=== PATIENT | male | born 1960 | race Caucasian/White ===

== ENCOUNTER 2019-04-15 19:22 | Inpatient (IN) | payer BC ==
[2019-04-15] MEDS ORDERED: ONDANSETRON 4 MG/2 ML VIAL ONE (21:07)
[2019-04-15] MEDS ORDERED: MORPHINE 4 MG/ML SYR ONE (21:07)
[2019-04-15] MEDS ORDERED: NA CHLORIDE 0.9% 1,000 ML ONE (21:07)
[2019-04-15 21:13] LABS: Absolute Lymphocytes (CBC) 2.6 K/uL (0.7-4.9); Basophils % 0.9 % (0-1.3); Lymphocytes % 26.1 % (15.3-44.8); MPV 8.7 fL (7.6-11.3); RBC Red Blood Cell Count 5.09 M/uL (4.33-5.43)
[2019-04-15 21:35] LABS: ALT/SGPT 34 U/L (12-78); AST/SGOT 15 U/L (15-37); Albumin 3.7 g/dL (3.4-5.0); Alkaline Phosphatase 134 U/L (45-117); BUN Blood Urea Nitrogen 18 mg/dL (7-18); Bicarbonate 27 mmol/L (21-32); Bilirubin Direct < 0.1 mg/dL (0-0.2); Bilirubin Total 0.3 mg/dL (0.2-1.0); Glucose Level 261 mg/dL (74-106); Lipase 3496 U/L (73-393); Potassium 3.9 mmol/L (3.5-5.1); Protein, Total 7.8 g/dL (6.4-8.2); Sodium Level 139 mmol/L (136-145)
--- NOTE | 2019-04-15 21:46 | RAD REPORT ---
EXAM DESCRIPTION: US - Abdomen Exam Limited - 04/15/2019 9:22 pm CLINICAL HISTORY: ABD PAIN COMPARISON: <Comparisons> FINDINGS: The gallbladder demonstrates no gallstones. Small amount of gallbladder sludge suspected. No pericholecystic fluid or gallbladder wall thickening. The common bile duct is normal measuring 3 m m. The liver demonstrates no findings of intrahepatic biliary dilatation. IMPRESSION: Minimal gallbladder sludge.
--- NOTE | 2019-04-16 00:02 | ER ---
Nurse's Notes [facility] Name: Corey Govea Age: 58 yrs Sex: Male : 1960 Arrival Date: 04/15/2019 Time: 19:26 Bed 20 Private MD: Norman Renae Diagnosis: Acute pancreatitis Presentation: 04/15 19:36 Presenting complaint: Patient states: right upper quad pain and epigastric pain ak1 intermittent since last week. pt denies vomiting. pt c/o intermittent nausea. Transition of care: patient was not received from another setting of care. Onset of symptoms is unknown. Risk Assessment: Do you want to hurt yourself or someone else? Patient reports no desire to harm self or others. Initial Sepsis Screen: Does the patient meet any 2 criteria? No. Patient's initial sepsis screen is negative. Does the patient have a suspected source of infection? No. Patient's initial sepsis screen is negative. Care prior to arrival: None. 19:36 Method Of Arrival: Ambulatory ak1 19:36 Acuity: NIKOLAI 3 ak1 Triage Assessment: 19:39 General: Appears in no apparent distress. Behavior is calm, cooperative. GI: Abdomen is ak1 round Reports upper abdominal pain, epigastric pain, nausea. Historical: - Allergies: 19:38 Codeine; ak1 - Home Meds: 19:39 atorvastatin oral oral [Active]; ak1 - PMHx: 19:38 High Cholesterol; ak1 - PSHx: 19:38 Appendectomy; ak1 - Immunization history:: Adult Immunizations unknown. - Social history:: Smoking status: Patient/guardian denies using tobacco, the patient reports quitting approximately 8 years ago. - Ebola Screening: : No symptoms or risks identified at this time. Screenin:40 Abuse screen: Denies threats or abuse. Denies injuries from another. Nutritional ak1 screening: No deficits noted. Tuberculosis screening: No symptoms or risk factors identified. Fall Risk None identified. Assessment: 21:00 General: Appears in no apparent distress. uncomfortable, Behavior is calm, cooperative, cc3 appropriate for age. Pain: Complains of pain in right upper quadrant Quality of pain is described as aching, Pain began since a week ago. Neuro: Level of Consciousness is awake, alert, obeys commands, Oriented to person, place, time, situation, Appropriate for age. Cardiovascular: Denies chest pain, Capillary refill < 3 seconds Patient's skin is warm and dry. Respiratory: Airway is patent Respiratory effort is even, unlabored, Respiratory pattern is regular, symmetrical. GI: Bowel sounds present X 4 quads. Abd is soft X 4 quads Abdomen is tender to palpation in right upper quadrant. : No signs and/or symptoms were reported regarding the genitourinary system. EENT: No signs and/or symptoms were reported regarding the EENT system. Derm: Skin is intact, is healthy with good turgor, Skin is pink, warm \T\ dry. normal. Musculoskeletal: Circulation, motion, and sensation intact. Range of motion: intact in all extremities. 22:25 Reassessment: Patient appears in no apparent distress at this time. Patient and/or cc3 family updated on plan of care and expected duration. Pain level reassessed. Patient is alert, oriented x 3, equal unlabored respirations, skin warm/dry/pink. Patient states feeling better. Patient states symptoms have improved. 23:45 Reassessment: Patient appears in no apparent distress at this time. Patient and/or cc3 family updated on plan of care and expected duration. Pain level reassessed. Patient is alert, oriented x 3, equal unlabored respirations, skin warm/dry/pink. Patient for admission, Dr. Slater at bedside. 04/16 00:10 Reassessment: Patient appears in no apparent distress at this time. Patient and/or cc3 family updated on plan of care and expected duration. Pain level reassessed. Patient is alert, oriented x 3, equal unlabored respirations, skin warm/dry/pink. Patient was ordered for Lipid, called lab at 1108 to ask if they still need a new sample and as per staff named Tawnya no need for new sample she will just add it on from the previously taken blood. 00:21 Reassessment: Patient taken by solar fabrication technician to their department by wheelchair. cc3 00:42 Reassessment: Patient came back from CT scan department, awaiting result. cc3 01:30 Reassessment: Patient appears in no apparent distress at this time. Patient and/or cc3 family updated on plan of care and expected duration. Pain level reassessed. Patient is alert, oriented x 3, equal unlabored respirations, skin warm/dry/pink. Room available in 220, Dr. Todd said Dr. Slater wants CT scan result first before sending the patient for admission. 02:00 Reassessment: Patient appears in no apparent distress at this time. Patient and/or cc3 family updated on plan of care and expected duration. Pain level reassessed. Patient is alert, oriented x 3, equal unlabored respirations, skin warm/dry/pink. CT scan result came, Dr. Todd informed Dr. Slater and said patient can be shifted upstairs for admission. Report called and handed over to REBEKAH Pope for continuity of care and management. Patient states feeling better. Patient states symptoms have improved. 02:20 Reassessment: Patient appears in no apparent distress at this time. Patient and/or cc3 family updated on plan of care and expected duration. Pain level reassessed. Patient is alert, oriented x 3, equal unlabored respirations, skin warm/dry/pink. Patient left ER for admission vitally stable by wheelchair escorted by technical supervisoreverette Patrick. No valuables left in the patient's room. Patient states feeling better. Patient states symptoms have improved. Vital Signs: 04/15 19:39 BP 137 / 89; Pulse 77; Resp 16; Temp 98.0; Pulse Ox 98% on R/A; Weight 78.02 kg (R); ak1 Height 5 ft. 7 in. (170.18 cm) (R); Pain 9/10; 21:05 BP 126 / 90; Pulse 69; Resp 16 S; Pulse Ox 96% on R/A; cc3 22:15 BP 143 / 88; Pulse 71; Resp 15 S; Pulse Ox 96% on R/A; Pain 4/10; cc3 23:00 BP 135 / 90; Pulse 71; Resp 16 S; Pulse Ox 97% on R/A; Pain 4/10; cc3 23:45 BP 145 / 88; Pulse 72; Resp 17 S; Pulse Ox 98% on R/A; Pain 3/10; cc3 04/16 00:46 BP 151 / 89; Pulse 72; Resp 17 S; Pulse Ox 95% on R/A; Pain 3/10; cc3 01:45 BP 151 / 84; Pulse 74; Resp 18 S; Pulse Ox 96% on R/A; Pain 2/10; cc3 02:12 BP 149 / 87; Pulse 75; Resp 17 S; Pulse Ox 96% on R/A; Pain 2/10; cc3 04/15 19:39 Body Mass Index 26.94 (78.02 kg, 170.18 cm) ak1 ED Course: 04/15 19:26 Patient arrived in ED. cl3 19:26 Norman Renae MD is Private Physician. cl3 19:37 Triage completed. ak1 19:39 Arm band placed on Patient placed in waiting room, Patient notified of wait time. ak1 19:40 Patient has correct armband on for positive identification. ak1 20:44 Mukesh Todd MD is Attending Physician. tw4 20:51 Mary Jane Gray is Primary Nurse. cc3 21:00 Inserted saline lock: 20 gauge in right antecubital area, using aseptic technique. cc3 Blood collected. 21:23 US Abdomen Limited In Process Unspecified. EDMS 23:59 Leif Slater DO is Hospitalizing Provider. tw4 04/16 00:54 CT Abd/Pelvis - IV Contrast Only In Process Unspecified. EDMS 02:00 No provider procedures requiring assistance completed. Patient admitted, IV remains in cc3 place. Administered Medications: 04/15 21:10 Drug: NS 0.9% 1000 ml Route: IV; Rate: 125 ml/hr; Site: right antecubital; cc3 04/16 02:00 Follow up: Response: No adverse reaction; IV Status: Infusion continued upon admission cc3 04/15 21:10 Drug: morphine 4 mg {Note: RASS 0.} Route: IVP; Site: right antecubital; cc3 22:00 Follow up: Response: No adverse reaction; Pain is decreased; RASS: Alert and Calm (0) cc3 21:15 Drug: Zofran 4 mg Route: IVP; Site: right antecubital; cc3 22:00 Follow up: Response: No adverse reaction; Nausea is decreased cc3 Outcome: 23:59 Decision to Hospitalize by Provider. tw4 04/16 02:00 Admitted to Med/surg accompanied by tech, family with patient, via wheelchair, room cc3 220, with chart, Report called to REBEKAH Pope Condition: stable Instructed on the need for admit, Demonstrated understanding of instructions. 02:22 Patient left the ED. cc3 Signatures: Dispatcher [employer] EDCristy Eaton, RN RN ak1 Mukesh Todd MD MD tw4 Mary Jane Gray cc3 Amelia Pineda cl3 Corrections: (The following items were deleted from the chart) 00:18 04/15 23:45 Reassessment: Patient appears in no apparent distress at this time. Patient cc3 and/or family updated on plan of care and expected duration. Pain level reassessed. Patient is alert, oriented x 3, equal unlabored respirations, skin warm/dry/pink. 3 04/16 02:04/15 22:15 BP 143 / 88; Pulse 71bpm; Resp 15bpm; Spontaneous; Pulse Ox 96% RA; [place] [id number] 04/16 02:04/15 23:00 BP 135 / 90; Pulse 71bpm; Resp 16bpm; Spontaneous; Pulse Ox 97% RA; [place] [id number] 04/16 02:08 04/15 23:45 BP 145 / 88; Pulse 72bpm; Resp 17bpm; Spontaneous; Pulse Ox 98% [facility]; [facility]
--- NOTE | 2019-04-16 00:03 | EDPHYS ---
Physician Documentation [facility] Name: Corey Govea Age: 58 yrs Sex: Male : 1960 Arrival Date: 04/15/2019 Time: 19:26 Bed 20 Private MD: Norman Renae ED Physician Mukesh Todd HPI: 04/15 21:32 This 58 yrs old Male presents to ER via Ambulatory with complaints of tw4 Abdominal Pain. 21:32 The patient presents with abdominal pain. Onset: The symptoms/episode began/occurred 1 tw4 week(s) ago, and became persistent today. Associated signs and symptoms: none. The symptoms are described as sharp. Severity of pain: At its worst the pain was moderate in the emergency department the pain is unchanged. The patient has not experienced similar symptoms in the past. 21:37 The symptoms radiate to right back. Modifying factors: The symptoms are alleviated by tw4 nothing, the symptoms are aggravated by food. Historical: - Allergies: 19:38 Codeine; ak1 - Home Meds: 19:39 atorvastatin oral oral [Active]; ak1 - PMHx: 19:38 High Cholesterol; ak1 - PSHx: 19:38 Appendectomy; ak1 - Immunization history:: Adult Immunizations unknown. - Social history:: Smoking status: Patient/guardian denies using tobacco, the patient reports quitting approximately 8 years ago. - Ebola Screening: : No symptoms or risks identified at this time. ROS: 21:37 Constitutional: Negative for fever, chills, and weight loss, Eyes: Negative for injury, tw4 pain, redness, and discharge, Cardiovascular: Negative for chest pain, palpitations, and edema, Respiratory: Negative for shortness of breath, cough, wheezing, and pleuritic chest pain. 21:37 Back: Negative for injury and pain, MS/Extremity: Negative for injury and deformity, Skin: Negative for injury, rash, and discoloration. 21:37 Abdomen/GI: Positive for abdominal pain, nausea, Negative for nausea and vomiting, nausea, vomiting, and diarrhea, vomiting, diarrhea, constipation, abdominal cramps, abdominal distension, anorexia, dysphagia, hematemesis, black/tarry stool, rectal pain, rectal bleeding, bowel incontinence. Exam: 21:37 Constitutional: This is a well developed, well nourished patient who is awake, alert, tw4 and in no acute distress. Head/Face: Normocephalic, atraumatic. Chest/axilla: Normal chest wall appearance and motion. Nontender with no deformity. No lesions are appreciated. Cardiovascular: Regular rate and rhythm with a normal S1 and S2. No gallops, murmurs, or rubs. Normal PMI, no JVD. No pulse deficits. Respiratory: Lungs have equal breath sounds bilaterally, clear to auscultation and percussion. No rales, rhonchi or wheezes noted. No increased work of breathing, no retractions or nasal flaring. Back: No spinal tenderness. No costovertebral tenderness. Full range of motion. Skin: Warm, dry with normal turgor. Normal color with no rashes, no lesions, and no evidence of cellulitis. MS/ Extremity: Pulses equal, no cyanosis. Neurovascular intact. Full, normal range of motion. Neuro: Awake and alert, GCS 15, oriented to person, place, time, and situation. Cranial nerves II-XII grossly intact. Motor strength 5/5 in all extremities. Sensory grossly intact. Cerebellar exam normal. Normal gait. 21:37 Abdomen/GI: Inspection: abdomen appears normal, Bowel sounds: diminished, Palpation: moderate abdominal tenderness, in the right upper quadrant. Vital Signs: 19:39 BP 137 / 89; Pulse 77; Resp 16; Temp 98.0; Pulse Ox 98% on R/A; Weight 78.02 kg (R); ak1 Height 5 ft. 7 in. (170.18 cm) (R); Pain 9/10; 21:05 BP 126 / 90; Pulse 69; Resp 16 S; Pulse Ox 96% on R/A; cc3 22:15 BP 143 / 88; Pulse 71; Resp 15 S; Pulse Ox 96% on R/A; Pain 4/10; cc3 23:00 BP 135 / 90; Pulse 71; Resp 16 S; Pulse Ox 97% on R/A; Pain 4/10; cc3 23:45 BP 145 / 88; Pulse 72; Resp 17 S; Pulse Ox 98% on R/A; Pain 3/10; cc3 04/16 00:46 BP 151 / 89; Pulse 72; Resp 17 S; Pulse Ox 95% on R/A; Pain 3/10; cc3 01:45 BP 151 / 84; Pulse 74; Resp 18 S; Pulse Ox 96% on R/A; Pain 2/10; cc3 02:12 BP 149 / 87; Pulse 75; Resp 17 S; Pulse Ox 96% on R/A; Pain 2/10; cc3 04/15 19:39 Body Mass Index 26.94 (78.02 kg, 170.18 cm) ak1 MDM: 04/15 20:44 Patient medically screened. tw4 23:59 Differential diagnosis: gastritis, gastroesophageal reflux disease, Hepatitis, Peptic tw4 Ulcer Disease, Perf. Duodenal Ulcer, Perf. Gastric Ulcer. Data reviewed: vital signs, nurses notes, lab test result(s), amylase and lipase, CBC, white blood cell count, hemoglobin, hematocrit, platelets, electrolytes, sodium, potassium, chloride, serum bicarbonate, BUN, creatinine, serum glucose, hepatic panel. Data interpreted: Pulse oximetry: Interpretation: normal. Counseling: I had a detailed discussion with the patient and/or guardian regarding: the historical points, exam findings, and any diagnostic results supporting the discharge/admit diagnosis, lab results, radiology results. Medication response: morphine relieved the patient's pain. Symptoms have resolved. Response to treatment: the patient's symptoms have markedly improved after treatment, and as a result, I will admit patient. Physician consultation: Leif Slater DO regarding admission, to the telemetry unit. and will see patient in ED. Special discussion:. 04/15 20:45 Order name: Basic Metabolic Panel; Complete Time: 22:00 04/15 22:00 Interpretation: Normal except: GLUC 261; GFR 86. 04/15 20:45 Order name: CBC with Diff; Complete Time: 22:00 04/15 22:00 Interpretation: Normal except. 04/15 20:45 Order name: Creatinine for Radiology; Complete Time: 22:00 04/15 22:00 Interpretation: Within normal limits: CRE 0.84; GFR > 90. 04/15 20:45 Order name: Hepatic Function; Complete Time: 22:00 04/15 22:00 Interpretation: Normal except: ALK 134; GLOB 4.1; A/G 0.9. 04/15 20:45 Order name: Lipase; Complete Time: 22:00 04/15 22:00 Interpretation: Normal except: LIP 3496. [facility] 04/15 23:57 Order name: Urine Dipstick--Ancillary (enter results); Complete Time: 01:54 az 04/16 01:54 Interpretation: Abnormal: USPGR >1.030. [facility] 04/15 20:45 Order name: IV Saline Lock; Complete Time: 21:04 [facility] 04/15 20:45 Order name: Labs collected and sent; Complete Time: 21:04 [facility] 04/15 20:53 Order name: US Abdomen Limited; Complete Time: 22:00 [facility] 04/15 23:58 Order name: CT Abd/Pelvis - IV Contrast Only [facility] 04/16 00:08 Order name: Lipid Profile [facility] 04/15 20:45 Order name: Urine Dipstick-Ancillary (obtain specimen); Complete Time: 00:01 4 Administered Medications: 21:10 Drug: NS 0.9% 1000 ml Route: IV; Rate: 125 ml/hr; Site: right antecubital; 3 04/16 02:00 Follow up: Response: No adverse reaction; IV Status: Infusion continued upon admission 3 04/15 21:10 Drug: morphine 4 mg {Note: RASS 0.} Route: IVP; Site: right antecubital; cc3 22:00 Follow up: Response: No adverse reaction; Pain is decreased; RASS: Alert and Calm (0) 3 21:15 Drug: Zofran 4 mg Route: IVP; Site: right antecubital; cc3 22:00 Follow up: Response: No adverse reaction; Nausea is decreased cc3 Disposition: 04/15/19 23:59 Hospitalization ordered by Leif Slater for Inpatient Admission. Preliminary diagnosis is Acute pancreatitis. - Bed requested for Telemetry/MedSurg (Inpatient). - Status is Inpatient Admission. cc3 - Condition is Fair. - Problem is new. - Symptoms are unchanged. UTI on Admission? No Signatures: Dispatcher [employer] EDVT Tawnya Morrell RN RN mw Krenek, Amber RN RN ak1 Mukesh Todd MD MD tw4 Mary Jane Gray cc3 Corrections: (The following items were deleted from the chart) 21:37 21:32 Constitutional: Negative for fever, chills, and weight loss, Cardiovascular: tw4 Negative for chest pain, palpitations, and edema, Respiratory: Negative for shortness of breath, cough, wheezing, and pleuritic chest pain, Back: Negative for injury and pain, MS/Extremity: Negative for injury and deformity, Skin: Negative for injury, rash, and discoloration, Neuro: Negative for headache, weakness, numbness, tingling, and seizure, tw4 21:37 21:32 Abdomen/GI: Positive for abdominal pain, nausea, Negative for nausea and tw4 vomiting, nausea, vomiting, and diarrhea, vomiting, diarrhea, constipation, abdominal cramps, abdominal distension, anorexia, dysphagia, hematemesis, black/tarry stool, rectal pain, rectal bleeding, bowel incontinence, flatulence, tw4 21:37 21:32 Constitutional: Positive for body aches, fatigue, malaise, poor PO intake, tw4 Negative for chills, fever, weight loss, tw4 21:38 21:32 The symptoms do not radiate. tw4 tw4 21:39 21:32 Constitutional: This is a well developed, well nourished patient who is awake, tw4 alert, and in no acute distress. Head/Face: Normocephalic, atraumatic. Chest/axilla: Normal chest wall appearance and motion. Nontender with no deformity. No lesions are appreciated. Cardiovascular: Regular rate and rhythm with a normal S1 and S2. No gallops, murmurs, or rubs. Normal PMI, no JVD. No pulse deficits. Respiratory: Lungs have equal breath sounds bilaterally, clear to auscultation and percussion. No rales, rhonchi or wheezes noted. No increased work of breathing, no retractions or nasal flaring. Abdomen/GI: Soft, non-tender, with normal bowel sounds. No distension or tympany. No guarding or rebound. No evidence of tenderness throughout. Back: No spinal tenderness. No costovertebral tenderness. Full range of motion. MS/ Extremity: Pulses equal, no cyanosis. Neurovascular intact. Full, normal range of motion. Neuro: Awake and alert, GCS 15, oriented to person, place, time, and situation. Cranial nerves II-XII grossly intact. Motor strength 5/5 in all extremities. Sensory grossly intact. Cerebellar exam normal. Normal gait. tw4 04/16 01:07 04/15 23:59 Hospitalization Ordered by Leif Slater DO for Inpatient Admission. mw Preliminary diagnosis is Acute pancreatitis. Bed requested for Telemetry/MedSurg (Inpatient). Status is Inpatient Admission. Condition is Fair. Problem is new. Symptoms are unchanged. UTI on Admission? No. tw4 04/16 02:22 01:07 04/15/2019 23:59 Hospitalization Ordered by Leif Slater DO for Inpatient cc3 Admission. Preliminary diagnosis is Acute pancreatitis. Bed requested for Telemetry/MedSurg (Inpatient). Status is Inpatient Admission. Condition is Fair. Problem is new. Symptoms are unchanged. UTI on Admission? No. mw
[2019-04-16 00:11] LABS: Urine Blood NEGATIVE (NEG); Urine Glucose 2+ (NEG); Urine Protein NEGATIVE (NEG); Urine Specific Gravity >1.030 (1.005-1.030); Urine pH 5.5 (5.0-7.0)
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
[2019-04-16] MEDS ORDERED: KETOROLAC 30 MG/ML INJ IV PRN (02:32)
[2019-04-16] MEDS ORDERED: ONDANSETRON 4 MG/2 ML VIAL IV PRN (02:32)
[2019-04-16] MEDS ORDERED: SODIUM CHLORIDE 0.9% 10ML INJ IV PRN (02:32)
[2019-04-16] MEDS ORDERED: ACETAMINOPHEN 650MG/RECT SUPP RECT PRN (02:32)
[2019-04-16] MEDS ORDERED: NA CHLORIDE 0.9% 1,000 ML IV SCH (02:32)
[2019-04-16] MEDS ORDERED: ACETAMINOPHEN 500 MG TAB PO PRN (02:32)
[2019-04-16 02:38] VITALS: BMI 25.9
[2019-04-16] MEDS: INSULIN -REGULAR HUMAN 50 UNIT/0.5 ML ML SQ SCH ×2 (06:26→12:00)
[2019-04-16] MEDS ORDERED: INSULIN -REGULAR HUMAN 50 UNIT/0.5 ML ML SQ SCH (07:30)
[2019-04-16 07:54] VITALS: O2SAT 93
[2019-04-16 07:57] LABS: Urine Appearance CLEAR; Urine Bilirubin NEGATIVE (NEG); Urine Blood NEGATIVE (NEG); Urine Color YELLOW; Urine Glucose 3+ (NEG); Urine Protein NEGATIVE (NEG); Urine Specific Gravity >=1.030 (1.005-1.030); Urine Urobilinogen 0.2 mg/dL (0.2-1.0)
[2019-04-16 08:08] LABS: Urine Microscopic Reflex NO UMIC
[2019-04-16] MEDS ORDERED: ENOXAPARIN 40 MG/0.4 ML SQ SCH (09:00)
[2019-04-16] MEDS ORDERED: PANTOPRAZOLE 40 MG INJ IVP SCH (09:00)
--- NOTE | 2019-04-16 10:14 | RAD REPORT ---
EXAM DESCRIPTION: Abdomen Pelvis W Contrast CLINICAL HISTORY: 58 years Male RUQ ABDOMINAL PAIN TECHNIQUE: Contiguous axial images obtained through the abdomen and pelvis following intravenous con trast administration. Coronal and sagittal reformatted images provided. This CT exam was performed according to our departmental dose-optimization program, which includes on e or more of the following dose reduction techniques: automated exposure control, adjustment of the m A and/or kV according to patient size, and/or use of iterative reconstruction technique. COMPARISON: No prior exams provided for comparison. FINDINGS: Minimal bibasilar atelectasis. Fatty infiltration of the liver, which is enlarged without focal lesion. Normal biliary tree and gall bladder. There is mild inflammation of the proximal third portion of the duodenum and adjacent uncinate proces s of the pancreas. The remainder of the pancreas is normal. No ductal dilatation or peripancreatic fl uid collection. No other bowel inflammation. No bowel obstruction, pneumatosis, free intraperitoneal air, abscess, or ascites. Colonic diverticulosis without diverticulitis. The spleen, adrenal glands, urinary bladder, and osseous structures are normal. Simple right and slig htly complex left renal cysts. No hydronephrosis or pyelonephritis on either side. Atherosclerosis without abdominal aortic aneurysm, dissection, or retroperitoneal hemorrhage. IMPRESSION: Mild acute pancreatitis and/or duodenitis, correlate with serum amylase and lipase. No other acute findings in the abdomen or pelvis. Fatty infiltration of the liver, which is enlarged. Colonic diverticulosis without diverticulitis. Electronically signed by: Evangelina Jean MD 04/16/2019 1:05 AM CDT Due to temporary technical issues with the PACS/Fluency reporting system, reports are being signed by the in house radiologist as a courtesy to ensure prompt reporting. The interpreting radiologist is f ully responsible for the content of the report.
[2019-04-16 12:27] VITALS: BP 115/74; TEMP 97.1
== END 2019-04-16 14:27 | disposition home or self-care (01) | DRG 440 ==
LOC: ER 19:22 → ERHOLD 04-16 01:38 → 2ND 04-16 02:14
PROVIDERS: ADMIT Family Medicine; ATTEND Family Medicine
DX: K85.90 Acute pancreatitis without necrosis or infection, unspecified (principal); E11.65 Type 2 diabetes mellitus with hyperglycemia; E78.5 Hyperlipidemia, unspecified
CPT/HCPCS: 36415; 74177; 76705; 80048; 80061; 80076; 81003; 82962; 83036; 83690; 85025; 87040; 96361; 96374; 96375; 99285; C9113; J2405; J7030; Q9967

== ENCOUNTER 2021-10-07 11:54 | Observation (INO) | payer BC ==
[2021-10-06 11:58] LABS: Absolute Lymphocytes (CBC) 2.2 K/uL (0.7-4.9); Hematocrit 43.4 % (39.6-49.0); Lymphocytes % 26.1 % (15.3-44.8); MPV 8.3 fL (7.6-11.3); RBC Red Blood Cell Count 4.95 M/uL (4.33-5.43)
[2021-10-06 12:00] LABS: Protime INR 0.97
[2021-10-06 12:06] LABS: Potassium 3.8 mmol/L (3.5-5.1)
--- NOTE | 2021-10-06 12:21 | RAD REPORT ---
EXAM DESCRIPTION: Antony Darling And Lat (2 Views)10/06/2021 12:11 pm CLINICAL HISTORY: Preop for cardiac catheterization COMPARISON: 2016 FINDINGS: Lungs appear clear of acute infiltrate. Heart is normal size. Mild prominence of the right paratracheal region is unchanged.
[2021-10-07] MEDS ORDERED: NA CHLORIDE 0.9% 500 ML ONE ×2 (11:58→15:39)
[2021-10-07] MEDS ORDERED: HEPA 1000U/500MLS 2,000 UNIT/1,000 ML BAG IV ONE (12:47)
[2021-10-07] MEDS ORDERED: FENTANYL CITR 100 MCG/2 ML ONE (14:22)
[2021-10-07] MEDS ORDERED: CLOPIDOGREL 75 MG TABLET ONE (14:23)
[2021-10-07] MEDS ORDERED: HEPARIN 5000 UNIT/ML 1 ML VIAL ONE (14:23)
[2021-10-07] MEDS ORDERED: MIDAZOLAM HCL 2 MG/2 ML INJ ONE (14:23)
[2021-10-07] MEDS ORDERED: VERAPAMIL HCL 10 MG/4 ML VIAL IV ONE (14:23)
[2021-10-07] MEDS ORDERED: ATROPINE SULF 1 MG/10 ML SYR IV ONE (14:24)
[2021-10-07] MEDS ORDERED: ASPIRIN 325 MG TAB ONE (14:24)
[2021-10-07] MEDS ORDERED: TICAGRELOR 90 MG TABLET PO ONE (14:24)
[2021-10-07] MEDS ORDERED: HEPARIN 10,000 UNIT/10 ML VIAL IV ONE (14:24)
[2021-10-07] MEDS ORDERED: REGADENOSON 0.4 MG/5 ML SYR IV ONE (15:12)
[2021-10-07] MEDS ORDERED: METOPROLOL TAR 25 MG TAB PO SCH (18:00)
--- OUTSIDE RECORDS SUMMARY | 2021-10-07 18:16 | XMS REPORT | Continuity of Care Document ---
:1960 Author Organization [facility] t Address 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 Allergies, Adverse Reactions, Alerts Allergy Allergy Status Severity Reaction(s) Onset Inactive Treating Comm ents Source Name Type Date Date Clinician Codeine Propensi Active Nausea Univers ty to and/or 1-20 ity of adverse Vomiting 00:00: [place] reaction 00 [facility] s [place] CODEINE DRUG Active N/V Univers INGREDI 1-20 ity of 00:00: [place] 00 [facility] NO KNOWN Drug Active Univers ALLERGIE Class ity of [facility] Social History Social Habit Start Date Stop Date Quantity Comments Source Exposure to Not sure [facility] SARS-CoV-2 (event) Medica l Branch Sex Assigned At [birth year] [facility] 00:00:00 00:00:00 [facility] Smoking Status Start Date Stop Date Source Unknown if ever smoked [facility] Medications Ordered Filled Start Stop Current Ordering Indication Dosage Frequency Signature Comments Components Source Medication Medication Date Date Medication? Clinician (SIG) Name Name No known No Univers medications 1-20 ity of 19:43: [place] 14 [facility] methocarbam 2021-0 Yes 500mg 500 mg, Un rupert oL 1-20 Oral, QID, ity of (ROBAXIN) 18:00[place] tablet 500 00 on Mon Medical mg 08/19/20 at Branch 1200, Until Discontinu ed, Routine methocarbam No [id number] 500mg Take 1 Univers oL 500 mg -08-25 tablet by ity of tablet 00:00: 05:59 mouth 3 [place] 00 :00 (three) Medical times [place] daily for 5 days. Vital Signs Vital Name Observation Time Observation Value Comments Source Systolic blood 2020-08-19 18:00:00 160 mm[Hg] [facility] Diastolic blood 2020-08-19 18:00:00 99 [facility]Hg[facility] [place] Heart rate 2020-08-19 18:00:00 75 /min [facility] Respiratory rate 2020-08-19 18:00:00 18 /min [facility] Oxygen saturation in 2020-08-19 18:00:00 99 /min [facility] Arterial blood by [facility] Pulse oximetry [place] Body temperature 2020-08-19 15:30:00 36.28 Soila [facility] Body weight 2020-08-19 15:30:00 86.183 kg [facility] Procedures Procedure Date / Time Performing Clinician Source Performed TROPONIN I 2020-08-19 18:03:00 Singer Ananth [facility] XR CHEST 1 VW 2020-08-19 15:54:35 Singer [facility] LIPASE 2020-08-19 15:36:00 Singer [facility] TROPONIN I 2020-08-19 15:36:00 Singer [facility] COMP. METABOLIC PANEL 2020-08-19 15:36:[address] [facility] ([id number]) [facility] CBC WITH DIFF 2020-08-19 15:36:00 Singer [facility] PROTHROMBIN TIME / INR 2020-08-19 15:36:00 Ananth Kumar [facility] ACTIVATED PARTIAL 2020-08-19 15:36:00 Ananth Kumar [facility] N-TERMINAL PRO-BNP 2020-08-19 15:36:00 Ananth Kumar [facility] NOTICE OF PRIVACY 2020-08-19 15:32:34 Doctor Unassigned, No Univ [facility] PRACTICES Name [facility] Branch CONSENT/REFUSAL FOR 2020-08-19 15:26:12 Doctor Unassigned, [facility] Medical [place] Encounters Start End Encounter Admission Attending Care Care Encounter Source Date/Time Date/Time Type Type Clinicians Facility Department ID 2021-08-19 2021-08-19 Laboratory Only, Ang Db Test [place] 1.2.8 [id number] [id number] Univers 19:45:00 19:45:00 Only [facility] [id number] ity [facility] [id number] Jalil as KIM?BLEA [id number] [address] MEDICAL OFFICE BUILDING 2020-08-19 2020-08-19 Emergency Singer [facility] [id number] Univers 09:26:00 13:31:00 Ananth [place] [id number] i ty [facility] [id number] [place] [facility] [id number] [facility] 084 Branch 2020-08-19 2020-08-19 Emergency X [place] ERT [id number] Univers 09:26:00 09:26:00 [facility] Results Test Description Test Time Test Comments Results Result Comments Source TROPONIN I 2020-08-19 18:43:00 Test Item Value Reference Range Interpretation Comme nts TROPONIN I (test code = <0.012 See_Comment [Au tomated message] The [id number]) system which ge nerated this result tra nsmitted reference range : <=0.034 ng/mL. The refe rence range was not u sed to interpret this result as normal/abnormal . CANDIDO (test code = CANDIDO) Equal or Less than 0.034 ng/ml---Normal ?Note: Cardiac troponin begins to rise 3-4 hours after the onset of ischemia. Repeat in 4-6 hours if the sample was drawn within 3-4 hours of the onset of the symptom and found normal. Between 0.035 and 0.120 ng/mL--- Borderline. Questionable myocardial injury or necrosis ? ?Note: Serial measurement may be necessary to confirm or exclude the diagnosis of myocardial injury or necrosis; Clinical correlation (symptoms, EKGs, imaging studies, and others) required; Repeat in 4-6 hours if clinically indicated. ? Equal or Higher than 0.121 ng/mL---Abnormal. Myocardial Injury or Necrosis Likely ? Biotin has been reported to cause a negative bias, interpret results relative to patient's use of biotin. ? Lab Interpretation (test Normal code = 63073-9) [facility] 16:12:00 Test Item Value Reference Range Interpretation Comments APTT Patient (test See_Comment [Automat ed code = 3173-2) message] The system which generated this result transmitted reference range : 23 - 38 Seconds . The reference range was not used to interpr et this result as normal/abnormal . CANDIDO (test code = CANDIDO) The [facility] patient population mean normal value for aPTT is 30 seconds. Lab Interpretation Normal (test code = 70865-8) [facility] [id number] 16:10:00 Test Item Value Reference Range Interpretation Comments TROPONIN I (test <0.012 See_Comment [Automated code = 4398890384) message] The system which generated this result transmitted reference range : <=0.034 ng/mL. The reference range was not used to interpr et this result as normal/abnormal . CANDIDO (test code = Equal or Less than CANDIDO) 0.034 ng/ml---Normal ?Note: Cardiac troponin begins to rise 3-4 hours after the onset of ischemia. Repeat in 4-6 hours if the sample was drawn within 3-4 hours of the onset of the symptom and found normal. Between 0.035 and 0.120 ng/mL--- Borderline. Questionable myocardial injury or necrosis ? ?Note: Serial measurement may be necessary to confirm or exclude the diagnosis of myocardial injury or necrosis; Clinical correlation (symptoms, EKGs, imaging studies, and others) required; Repeat in 4-6 hours if clinically indicated. ? Equal or Higher than 0.121 ng/mL---Abnormal. Myocardial Injury or Necrosis Likely ? Biotin has been reported to cause a negative bias, interpret results relative to patient's use of biotin. ? Lab Interpretation Normal (test code = 66273-7) [facility] Center[facility] TIME / [id number] 16:10:00 Test Item Value Reference Range Interpretation Comments PROTIME PATIENT (test See_Comment [Auto mated message] code = 5964-2) The system wh ich generated this result transmitted ref erence range: 12.0 - 1 4.7 Seconds. The re ference range was not u sed to interpret this result as normal/abnor mal. INR (test code = 6301-6) Nor mal INR <1.1; Warfarin Therap eutic range 2.0 to 3. 0 or 2.5 to 3.5, dep ending upon the indica tions. Lab Interpretation (test Normal code = 59841-2) [facility] Center[facility]MINAL [id number] 16:07:00 Test Item Value Reference Range Interpretation Comments NT-proBNP (test code 100 pg/mL See_Comment [Autom ated = 1867564518) message] The system which generated this result transmitted reference range : <=125. The reference range was not used to interpret this result as normal/abnormal . CANDIDO (test code = CANDIDO) Biotin has been reported to cause a negative bias, interpret results relative to patient's use of biotin. Lab Interpretation Normal (test code = 00740-3) [facility] Center[facility]. METABOLIC PANEL (09678)2020-08-19 15:59:00 Test Item Value Reference Range Interpretation Comments NA (test code = 139 mmol/L 135-145 9830681127) K (test code = 3.7 mmol/L 3.5-5 4439243285) CL (test code = 99 mmol/L 98-108 0468733162) CO2 TOTAL (test code = 28 mmol/L 23-31 6768685182) AGAP (test code = 2-16 9262267574) BUN (test code = 16 mg/dL 7-23 5905805513) GLUCOSE (test code = 239 mg/dL 70-110 H 7013377190) CREATININE (test code = 0.82 mg/dL 0.6-1.25 5970313028) TOTAL BILI (test code = 0.6 mg/dL 0.1-1.9 3611589395) CALCIUM (test code = 8.7 mg/dL 8.6-10.6 9756000126) T PROTEIN (test code = 7.7 g/dL 6.3-8.2 4684716388) ALBUMIN (test code = 4.6 g/dL 3.5-5 6518907902) ALK PHOS (test code = 90 U/L 34-122 5167929067) ALTv (test code = 64 U/L 5-50 H 1742-6) AST(SGOT) (test code = 46 U/L 13-40 H 4059107741) eGFR Calculation mL/min/1.73m2 (Non-) (test code = 8573629055) eGFR Calculation mL/min/1.73m2 () (test code = 9614199032) CANDIDO (test code = CANDIDO) Association of Glomerular Filtration Rate (GFR) and Staging of Kidney Disease* + --+ --+ ------+| GFR (mL/min/1.73 m2) ?| With Kidney Damage ?| ?Without Kidney Damage+ --------+ --------+ +| ?>90 ?| ?Stage one ?| ? Normal ?+ ---+ ---+ -------+| ?60-89 ?| ?Stage two ?| ? Decreased GFR ? + --+ --+ ------+| ?30-59 ?| ?Stage three ?| ? Stage three ? + --+ --+ ------+| ?15-29 ?| ?Stage four ? | ? Stage four ?+ ---+ ---+ -------+| ?<15 (or dialysis) ? ?| ?Stage five ? | ? Stage five ?+ ---+ ---+ -------+ *Each stage assumes the associated GFR level has been in effect for at least three months. ?Stages 1 to 5, with or without kidney disease, indicate chronic kidney disease. Notes: Determination of stages one and two (with eGFR >59mL/min/1.73 m2) requires estimation of kidney damage for at least three months as defined by structural or functional abnormalities of the kidney, manifested by either:Pathological abnormalities or Markers of kidney damage (including abnormalities in the composition of the blood or urine or abnormalities in imaging tests). Lab Interpretation Abnormal (test code = 60528-1) [facility] CenterLIP[facility], [id number] 15:58:00 Test Item Value Reference Range Interpretation Comments LIPASE (test code = 9561384071) 78 U/L 0-220 Lab Interpretation (test code = Normal 12801-0) [facility] CenterXR CHEST 1 [id number] 15:56:01HISTORY: Chest pain. TECHNIQUE: Portable AP erect view of the chest is obtained. No prior cheststudyavailable for comparison. FINDINGS: No acute pneumonia. No pneumothorax or pleural effusion orpulmonary congestion detected. Cardiac size is within upper normal limits. CONCLUSIONS: No signs of acute cardiopulmonary disease.Idmb, Radiant Results Inft User - 08/19/2020 9:57 AM CSTHISTORY: Chest pain.TECHNIQUE: Portable AP erect view of the chest is obtained. No prior cheststudy available for comparison.FINDINGS: No acute pneumonia. No pneumothorax or pleural effusion orpulmonary congestion detected. Cardiac size is within upper normal limits. CONCLUSIONS: No signs of acute cardiopulmonary disease.[facility] CenterCBC WITH [id number] 15:45:00 Test Item Value Reference Range Interpretation Comments WBC (test code = See_Comment [Automated 9290-2) message] The sy stem which generated this result transmitted reference range : 4.20 - 10.70 10*3/?L. The reference range was not used to interpret this result as normal/abnormal . RBC (test code = See_Comment [Automated 739-8) message] The sy stem which generated this result transmitted reference range : 4.26 - 5.52 10*6/?L. The reference range was not used to interpret this result as normal/abnormal . HGB (test code = 14.9 g/dL 12.2-16.4 718-7) HCT (test code = 45.5 % 38.4-49.3 4544-3) MCV (test code = 87.3 fL 81.7-95.6 787-2) MCH (test code = 28.6 pg 26.1-32.7 785-6) MCHC (test code = 32.7 g/dL 31.2-35 786-4) RDW-SD (test code = 41.5 fL 38.5-51.6 61460-5) RDW-CV (test code = 12.9 % 12.1-15.4 788-0) PLT (test code = See_Comment [Automated 777-3) message] The sy stem which generated this result transmitted reference range : 150 - 328 10*3/ ?L. The reference r jass was not used to interpret this result as normal/abnormal . MPV (test code = 10.1 fL 9.8-13 21389-8) NRBC/100 WBC (test See_Comment [Automat ed code = 0243950850) message] The system which generated this result transmitted reference range : 0.0 - 10.0 /100 WBCs. The refer ence range was not u sed to interpret th is result as normal/abnormal . NRBC x10^3 (test code <0.01 See_Comment [Auto mated = 7132771142) message] The s ystem which generated this result transmitted reference range : 10*3/?L. The reference range was not used to interpret this result as normal/abnormal . GRAN MAT (NEUT) % 77.2 % (test code = 770-8) IMM GRAN % (test code 0.50 % = 6470939711) LYMPH % (test code = 16.4 % 736-9) MONO % (test code = 4.8 % 5905-5) EOS % (test code = 0.6 % 713-8) BASO % (test code = 0.5 % 706-2) GRAN MAT x10^3(ANC) 8.12 10*3/uL 1.99-6.95 H (test code = 5509172638) IMM GRAN x10^3 (test 0.05 10*3/uL 0-0.06 code = 9551766388) LYMPH x10^3 (test code 1.73 10*3/uL 1.09-3.23 = 731-0) MONO x10^3 (test code 0.51 10*3/uL 0.36-1.02 = 742-7) EOS x10^3 (test code = 0.06 10*3/uL 0.06-0.53 711-2) BASO x10^3 (test code 0.05 10*3/uL 0.01-0.09 = 704-7) Lab Interpretation Abnormal (test code = 42032-2) [facility]"
[2021-10-07] MEDS ORDERED: MORPHINE 2 MG/ML SYR IV PRN (18:40)
[2021-10-07] MEDS ORDERED: ACETAMINOPHEN 500 MG TAB PO PRN (18:41)
[2021-10-07 18:56] VITALS: O2SAT 98
[2021-10-07] MEDS: ENOXAPARIN 40 MG/0.4 ML SQ SCH (20:00)
[2021-10-07] MEDS ORDERED: ATORVASTATIN 40 MG TAB PO SCH (21:00)
[2021-10-07] MEDS ORDERED: METOPROLOL TAR 50 MG TAB PO SCH (21:00)
[2021-10-07] MEDS ORDERED: TICAGRELOR 90 MG TABLET PO SCH (21:00)
[2021-10-08] MEDS ORDERED: TICAGRELOR 90 MG TABLET PO SCH (02:30)
--- NOTE | 2021-10-08 02:47 | OP ---
Date of Procedure: 10/07/2021 Surgeon: MATEO GONZALEZ Procedure Performed: 1.Selective coronary angiogram. 2.IVUS of LAD. 3.FFR of the mid LAD, which was significant at 0.65. 4.PCI of mid LAD using 3.5 x 28 mm Synergy drug-eluting stent that was inflated to high pressure pro ximally and then distally overlapped by another 3.0 x 12 mm Synergy drug-eluting stent. Indication: Abnormal stress test and chest pain. Access: Right radial artery 6-[place] Island[place] closed with TR band. Complications: None. Bleeding: Less the stent 10 mL. Anesthesia: Total sedation time was 85 minutes. Description Of Procedure: After risks, benefits, and alternatives were explained, the patient agreed to the procedure and signed informed consent. The patient was brought into the cardiac catheterizat ion laboratory, prepped and draped in usual sterile fashion. Then, we accessed the right radial sohail ry using pediatric micropuncture kit and placed a 6-[place] Island[place] slender sheath and took a 5-[place] Brielle 4 .0 catheter into the aortic root and engaged the left main, right coronary artery and took standard v iews and then exchanged for EBU 3.5 guide over a J-wire into the aortic root, engaged the left main a nd took a Comet wire into the aortic root gave systemic heparin to assure ACT level above 250 and the n the pressures were equalized and then the wire was advanced to the LAD across the area of stenosis and FFR was obtained, it was very significant at 0.65 without significant drift. Then decided to pro ceed with a PCI after doing IVUS to evaluate the calcification of the arteries. I took an IVUS steve ter into the LAD and calcium burden was present, but not significant, so decided to proceed with PCI. Then, the lesion was prepped using a 3.5 x 20 mm NC balloon and then the diagonal branch was protec ethan with a short run-through wire. The patient was loaded with Brilinta before proceeding and he rec eived aspirin already today. I then placed a 3.5 x 28 mm Synergy drug-eluting stent across the area of stenosis to high-pressure, gave a size close to 3.9 mm and then there was dissection and the edge of the stent, so decided to place another 3.0 x 12 mm stent to overlap with the first one and the res ults angiographically at the end were satisfactory. As such, we removed the wires, took final angiog sheldon with good results. I then removed the guide catheter and sheath and placed TR band with good hem ostasis. Findings: 1.Left main is large and normal. 2.LAD, large vessel. Mid LAD has diffuse 70% stenosis very long lesion more than 25 mm status post successful high-vessel FFR guided PCI as outlined above. Then diagonal branches, 1st diagonal branch has diffuse 50% stenosis. 3.Left circumflex, large with a large OM branch. The left circumflex itself is normal. OM branch h as proximal 80% stenosis. 4.RCA. Small vessel with mid long DYNAMOTOR REPAIRER and gets collaterals from the LAD. Conclusion: 1.Severe mid LAD stenosis, status post successful IVUS and FFR guided PCI as outlined above. 2.Severe OM1 branch stenosis. Plan for staged PCI in about 4-5 [address] 3[address]CT of the mid RCA, small vessel with good collaterals from the LAD to be left alone. Plan: Continue Brilinta, aspirin, and statin, and plan for staged PCI of the OM1 branch in 4-5 weeks . SR/MODL Voice ID: [id number] Report ID: [id number]
[2021-10-08 05:53] LABS: Absolute Lymphocytes (CBC) 2.1 K/uL (0.7-4.9); Lymphocytes % 21.6 % (15.3-44.8); MPV 8.2 fL (7.6-11.3)
[2021-10-08 06:41] LABS: BUN Blood Urea Nitrogen 16 mg/dL (7-18); Bicarbonate 23 mmol/L (21-32); Glucose Level 232 mg/dL (74-106); HDL Cholesterol 28 mg/dL (40-60); Sodium Level 138 mmol/L (136-145)
[2021-10-08 06:55] LABS: LDL, Direct 106 mg/dL (100-129)
[2021-10-08 07:49] VITALS: BP 145/87; TEMP 97
[2021-10-08] MEDS: ENOXAPARIN 40 MG/0.4 ML SQ SCH (09:00)
[2021-10-08] MEDS ORDERED: ASPIRIN EC 81 MG TAB PO SCH (09:00)
--- NOTE | 2021-10-08 13:11 | EKG ---
Test Date: 2021-10-07 Test Time: 17:27:03 Material Analyst: MEASUREMENT RESULTS: Intervals: Rate: 85 MT: 164 QRSD: 92 QT: 370 QTc: 440 [place]: P: 52 MT: 164 QRS: -36 T: 14 INTERPRETIVE STATEMENTS: Normal sinus rhythm Left axis deviation Inferior infarct, age undetermined Anteroseptal infarct, age undetermined Abnormal ECG Compared to ECG 10/06/2021 11:31:48 Left-axis deviation now present Myocardial infarct finding still present Electronically Signed On 10-08-21 13:08:12 PEDIATRIC OCCUPATIONAL THERAPIST by Theodore Tse
--- NOTE | 2021-10-08 15:56 | P.HP ---
Certification for Inpatient Patient admitted to: Observation With expected LOS: <2 Midnights Patient will require the following post-hospital care: None Practitioner: I am a practitioner with admitting privileges, knowledge of patient current condition, hospital course, and medical plan of care. Services: Services provided to patient in accordance with Admission requirements found in Title 42 Section 412.3 of the Code of Federal Regulations Patient History Date of Service: 10/07/21 Reason for admission: Status post cardiac catheterization-LAD stent x2 History of Present Illness: Patient is a 60-year-old gentleman who is that history of coronary artery disease. Patient has been advised to get cardiac catheterization but he had been putting this off. He finally decided to proceed with the cardiac catheterization as he was having chest pain. Patient was scheduled for cardiac catheterization. Patient had 2 LAD stents placed. Patient was admitted to the hospital for observation post cardiac catheterization. Allergies codeine Adverse Reaction (Intermediate, Verified 10/06/21 11:21) Nausea/Vomiting Home Medications: Cholecalciferol (Vitamin D3) [Vitamin D3] 1,000 unit PO DAILY 04/16/19 Multivitamin [Multivitamins] 1 tab PO DAILY 04/16/19 Omeprazole Magnesium [Prilosec Otc] 20 mg PO DAILY 04/16/19 Simvastatin 20 mg PO DAILY 04/16/19 Metoprolol Tartrate [Lopressor*] 25 mg PO BID 6AM 6PM #60 tab 10/08/21 Simvastatin [Zocor] 80 mg PO DAILY #30 tablet 10/08/21 Ticagrelor [Brilinta*] 90 mg PO Q12H #60 tablet 10/08/21 - Past Medical/Surgical History Diabetic: No -: Diabetes mellitus type 2 -: Hyperlipidemia -: CAD -: Appendectomy -: Cardiac catheterization Psychosocial/ Personal History: Patient has a girlfriend. - Family History Father Medical History: Cancer, Other (see notes) Mother Medical History: Heart disease, Hypertension - Social History Alcohol use: No Review of Systems 10-point ROS is otherwise unremarkable Physical Examination - Vital Signs Temperature: 97 F Blood Pressure: 145/87 Pulse: 72 Respirations: 18 Pulse Ox (%): 90 - Physical Exam General: Alert, In no apparent distress, Oriented x3 HEENT: Atraumatic, PERRLA, Mucous membr. moist/pink, EOMI, Sclerae nonicteric Neck: Supple, 2+ carotid pulse no bruit, No LAD, Without JVD or thyroid abnormality Respiratory: Clear to auscultation bilaterally, Normal air movement Cardiovascular: Regular rate/rhythm, Normal S1 S2, No murmurs Gastrointestinal: Normal bowel sounds, Soft and benign, Non-distended, No tenderness Musculoskeletal: No clubbing, No swelling, No tenderness Integumentary: No rashes Neurological: Normal gait, Normal speech, Normal strength at 5/5 x4 extr, Normal tone, Sensation intact, Cranial nerves 3-12 intact, Normal affect Lymphatics: No axilla or inguinal lymphadenopathy - Studies Laboratory Data (last 24 hrs) 10/08/21 05:22: Sodium 138, Potassium 4.0, BUN 16, Creatinine 0.91, Glucose 232 H, Triglycerides 437 H, Cholesterol 195, LDL Cholesterol Direct 106, HDL Cholesterol 28 L, Cholesterol/HDL Ratio 6.96 10/08/21 05:22: WBC 9.70, Hgb 14.3, Hct 41.0, Plt Count 267 Assessment & Plan - Problems (Diagnosis) (1) Status post insertion of drug-eluting stent into left anterior descending (LAD) artery for coronary artery disease Status: Acute - Plan Plan: 1. Continue antiplatelet and statin therapy 2. Monitor on telemetry and monitor for chest pain. 3. Continue beta-itzel therapy 4. Outpatient cardiology follow-up 5. Plan to discharge in a.m. Discharge Plan: Home Plan to discharge in: Greater than 2 days - Advance Directives Does patient have a Living Will: No Does patient have a Durable POA for Healthcare: No - Code Status/Comfort Care Code Status Assessed: Yes Code Status: Full Code Critical Care: No Time Spent Managing PTS Care (In Minutes): 45
--- NOTE | 2021-11-11 07:25 | P.DS ---
Discharge Date: 10/08/21 Disposition: ROUTINE DISCHARGE Discharge Condition: GOOD Reason for Admission: Status post cardiac catheterization-LAD stent x2 Consultations: Cardiology - Problems (1) Status post insertion of drug-eluting stent into left anterior descending (LAD) artery for coronary artery disease Status: Acute Brief History of Present Illness: Patient is a 60-year-old gentleman who is that history of coronary artery disease. Patient has been advised to get cardiac catheterization but he had been putting this off. He finally decided to proceed with the cardiac catheterization as he was having chest pain. Patient was scheduled for cardiac catheterization. Patient had 2 LAD stents placed. Patient was admitted to the hospital for observation post cardiac catheterization. Hospital Course: Patient had cardiac catheterization and stent x2 placed. Patient will continue with antiplatelet therapy and statin therapy along with strict blood pressure medication. Patient will need close cardiology follow-up. At this time, patient is stable for discharge home. Vital Signs/Physical Exam: Temp Pulse Resp BP Pulse Ox 97 F 72 18 145/87 H 90 L 10/08/21 15:58 10/08/21 15:58 10/08/21 15:58 10/08/21 15:58 10/08/21 15:58 General: Alert, In no apparent distress, Oriented x3 Laboratory Data at Discharge: WBC 9.70 K/uL (4.3-10.9) 10/08/21 05:22 Hgb 14.3 g/dL (13.6-17.9) 10/08/21 05:22 Hct 41.0 % (39.6-49.0) 10/08/21 05:22 Plt Count 267 K/uL (152-406) 10/08/21 05:22 PT 11.2 SECONDS (9.5-12.5) 10/06/21 11:37 INR 0.97 10/06/21 11:37 APTT 30.5 SECONDS (24.3-36.9) 10/06/21 11:37 Sodium 138 mmol/L (136-145) 10/08/21 05:22 Potassium 4.0 mmol/L (3.5-5.1) 10/08/21 05:22 BUN 16 mg/dL (7-18) 10/08/21 05:22 Creatinine 0.91 mg/dL (0.55-1.3) 10/08/21 05:22 Glucose 232 mg/dL (74-106) H 10/08/21 05:22 Triglycerides 437 mg/dL (<150) H 10/08/21 05:22 Cholesterol 195 mg/dL (<200) 10/08/21 05:22 LDL Cholesterol Direct 106 mg/dL (100-129) 10/08/21 05:22 HDL Cholesterol 28 mg/dL (40-60) L 10/08/21 05:22 Cholesterol/HDL Ratio 6.96 10/08/21 05:22 Home Medications: Cholecalciferol (Vitamin D3) [Vitamin D3] 1,000 unit PO DAILY 04/16/19 Multivitamin [Multivitamins] 1 tab PO DAILY 04/16/19 Omeprazole Magnesium [Prilosec Otc] 20 mg PO DAILY 04/16/19 Simvastatin 20 mg PO DAILY 04/16/19 Metoprolol Tartrate [Lopressor*] 25 mg PO BID 6AM 6PM #60 tab 10/08/21 Simvastatin [Zocor] 80 mg PO DAILY #30 tablet 10/08/21 Ticagrelor [Brilinta*] 90 mg PO Q12H #60 tablet 10/08/21 New Medications: Ticagrelor [Brilinta*] 90 mg PO Q12H #60 tablet Metoprolol Tartrate [Lopressor*] 25 mg PO BID 6AM 6PM #60 tab Simvastatin [Zocor] 80 mg PO DAILY #30 tablet Physician Discharge Instructions: -DC IV and DC home -Follow-up with PCP in 1 to 2 weeks -Follow-up with Cardiology in 1 to 2 weeks -Please call Dr. Romero at [phone] if any questions regarding hospital stay -Please call nursing station at [phone] if any nursing or medication questions -Return to the emergency room if symptoms worsen Diet: AHA Activity: Fall precautions Followup: Rogers Jo MD [ACTIVE - CAN ADMIT] - 1-2 Weeks (call for an aptointment) Time spent managing pt's care (in minutes): 35
== END 2021-10-08 11:15 | disposition home or self-care (01) ==
LOC: CCL 11:54 → 2ND 18:12
PROVIDERS: ADMIT Hospitalist; ATTEND Hospitalist
DX: I25.10 Atherosclerotic heart disease of native coronary artery without angina pectoris (principal); I25.82 Chronic total occlusion of coronary artery; I10 Essential (primary) hypertension; E78.5 Hyperlipidemia, unspecified; E11.9 Type 2 diabetes mellitus without complications; Z87.891 Personal history of nicotine dependence; Z79.899 Other long term (current) drug therapy; Z88.5 Allergy status to narcotic agent; Z20.822 Contact with and (suspected) exposure to COVID-19; Z82.49 Family history of ischemic heart disease and other diseases of the circulatory system; Z80.9 Family history of malignant neoplasm, unspecified
CPT/HCPCS: 93005 ×2; 85025 ×2; 80048 ×2; 36415 ×2; 83721; 85610; 80061; 82947 ×2; 85347 ×3; 85730; 71046; 92928; 92978; 93458; 93571; U0003; C1893; C1725; J1644 ×2; J1650; J2250; J3010; J2785; G0378 ×3; J7040 ×2; C1769; G0379; 93454; Q9967

== ENCOUNTER 2021-11-18 11:00 | Day surgery (SDC) | payer BC ==
[2021-11-15 13:10] LABS: Potassium 3.8 mmol/L (3.5-5.1)
[2021-11-15 13:18] LABS: Absolute Lymphocytes (CBC) 1.6 K/uL (0.7-4.9); Hematocrit 43.1 % (39.6-49.0); MPV 8.3 fL (7.6-11.3); RBC Red Blood Cell Count 4.94 M/uL (4.33-5.43)
[2021-11-15 13:33] LABS: Protime INR 0.92
--- NOTE | 2021-11-16 09:00 | EKG ---
Test Date: 2021-11-15 Test Time: 11:31:16 Trust Officer: ALLEN MEASUREMENT RESULTS: Intervals: Rate: 71 RI: 156 QRSD: 104 QT: 400 QTc: 434 [place]: P: 269 RI: 156 QRS: -32 T: 57 INTERPRETIVE STATEMENTS: Unusual P axis, possible ectopic atrial rhythm Left axis deviation Septal infarct, age undetermined Abnormal ECG Compared to ECG 10/07/2021 17:27:03 Sinus rhythm no longer present Myocardial infarct finding still present Electronically Signed On 11-16-21 08:58:19 CDT by Theodore Tse
[2021-11-18] MEDS ORDERED: HEPA 1000U/500MLS 2,000 UNIT/1,000 ML BAG IV ONE (11:05)
[2021-11-18] MEDS ORDERED: FENTANYL CITR 100 MCG/2 ML ONE (11:05)
[2021-11-18] MEDS ORDERED: HEPARIN 5000 UNIT/ML 1 ML VIAL ONE (11:06)
[2021-11-18] MEDS ORDERED: MIDAZOLAM HCL 2 MG/2 ML INJ ONE (11:06)
[2021-11-18] MEDS ORDERED: NITROGLYCERIN/D5W 25 MG/250 ML BTL IV ONE (11:07)
[2021-11-18] MEDS ORDERED: VERAPAMIL HCL 10 MG/4 ML VIAL IV ONE (11:07)
[2021-11-18] MEDS ORDERED: NITROGLYCERIN 100 MCG/ML SYR (for cath lab use only) IV ONE (11:07)
[2021-11-18] MEDS ORDERED: ATROPINE SULF 1 MG/10 ML SYR IV ONE (11:07)
[2021-11-18] MEDS ORDERED: NA CHLORIDE 0.9% 500 ML ONE (11:14)
[2021-11-18 11:30] VITALS: TEMP 97.5
[2021-11-18] MEDS ORDERED: CLOPIDOGREL 75 MG TABLET ONE (12:13)
[2021-11-18] MEDS ORDERED: METOPROLOL TARTRATE 5 MG/5 ML INJ IV ONE (12:44)
[2021-11-18] MEDS ORDERED: HYDRALAZINE HCL 20 MG/ML VIAL ONE (12:44)
[2021-11-18] MEDS ORDERED: ONDANSETRON 4 MG/2 ML VIAL ONE (13:46)
[2021-11-18 15:03] VITALS: O2SAT 97
[2021-11-18 15:31] VITALS: BP 128/79
--- NOTE | 2021-11-19 | OP ---
Date of Procedure: 11/18/2021 Surgeon: MATEO GONZALEZ Procedure Performed: 1.Selective coronary angiogram. 2.Percutaneous coronary intervention of severe OM1 stenosis using 2.5 x 20 mm Synergy drug-eluting s tent overlapped with a stent of 2.5 x 12 mm to cover the mid OM with severe stenosis as well. Indications: Known severe OM stenosis with chest pain. Access: Right radial artery 6-Maltese closed with TR band. Complications: None. Bleeding: Less than 10 mL. Anesthesia: Total sedation time was 35 minutes. Description Of Procedure: After risks, benefits, and alternatives were explained, the patient agreed to the procedure and signed informed consent. The patient was brought into cardiac catheterization laboratory, prepped and draped in usual sterile fashion. We accessed to right radial artery using pe diatric micropuncture kit and placed a 6-[place] slender sheath. Fentanyl and versed were given in in cremental doses to achieve adequate moderate sedation. Then, I took XB 3.5 guide into the aortic mounika t and engaged left main and took short run-through wire. After given systemic heparin to assure ACT level above 250, I took a run-through wire into the left circ and to the OM. Lesion was pre-dilated. PCI using 2.5 x 20 mm was done to cover the OM1 all the way to the ostium, however, there was a mid OM stenosis that did not clear with nitroglycerin, so put another 2.5 x 12 mm stent that overlap wit h the first stent with excellent results. The left circ was jailed at the bifurcation of the OM, so the stent balloon was advanced into the area and low-pressure inflation was done, opened it up nicely . No dissection at this point. We took final angiogram that was satisfactory, removed the guide and sheath, placed TR band with good hemostasis. Findings: 1.Left main; large and normal. 2.LAD: Proximal LAD stent is patent. No significant disease, otherwise. 3.Left circumflex, proximal 30% to 40%. OM1 is proximal to mid 90% stenosis, status post successful PCI as above and the mid circ has 30% to 40%. RCA was not injected. Conclusion: 1.Successful PCI of severe OM1 stenosis. 2.Moderate coronary artery disease elsewhere. Plan: Aspirin, Plavix, high-dose statin. SR/MODL Voice ID: [id number] Report ID: [id number]
== END 2021-11-18 16:16 | disposition home or self-care (01) ==
LOC: CCL 11:00
PROVIDERS: ATTEND Internal Medicine
DX: I25.10 Atherosclerotic heart disease of native coronary artery without angina pectoris (principal); I10 Essential (primary) hypertension; E78.5 Hyperlipidemia, unspecified; E11.9 Type 2 diabetes mellitus without complications; Z95.5 Presence of coronary angioplasty implant and graft; Z79.82 Long term (current) use of aspirin; Z20.822 Contact with and (suspected) exposure to COVID-19; Z87.891 Personal history of nicotine dependence
CPT/HCPCS: 93005; 85025; 80048; 36415; 85610; 82947 ×2; 85347; 85730; 92928; 92929; 93454; 76937; U0002; C1893; Q9967; C1725; J1644 ×2; J2250; J3010; J7040; J2405; J0360

== ENCOUNTER 2022-06-06 13:10 | Observation (INO) | payer BC ==
[~2022-06-06 13:10] MED LIST: NA CHLORIDE 0.9% 500 ML ONE
[2022-06-06] MEDS ORDERED: MIDAZOLAM HCL 2 MG/2 ML INJ ONE (14:25)
[2022-06-06] MEDS ORDERED: HEPA 1000U/500MLS 2,000 UNIT/1,000 ML BAG IV ONE (14:25)
[2022-06-06] MEDS ORDERED: HEPARIN 5000 UNIT/ML 1 ML VIAL ONE (14:25)
[2022-06-06] MEDS ORDERED: VERAPAMIL HCL 10 MG/4 ML VIAL IV ONE (14:25)
[2022-06-06] MEDS ORDERED: CLOPIDOGREL 75 MG TABLET ONE (14:26)
[2022-06-06] MEDS ORDERED: HEPARIN 10,000 UNIT/10 ML VIAL IV ONE (14:26)
[2022-06-06] MEDS ORDERED: ATROPINE SULF 1 MG/10 ML SYR IV ONE (14:26)
[2022-06-06] MEDS ORDERED: NA CHLORIDE 0.9% 500 ML ONE (15:24)
[2022-06-06] MEDS ORDERED: ASPIRIN 81 MG CHEWABLE TABLET PO ONE (16:00)
[2022-06-06] MEDS ORDERED: ACETAMINOPHEN 325 MG TABLET ONE (16:58)
--- NOTE | 2022-06-06 18:31 | P.HP ---
Certification for Inpatient Patient admitted to: Observation With expected LOS: <2 Midnights Patient will require the following post-hospital care: None Practitioner: I am a practitioner with admitting privileges, knowledge of patient current condition, hospital course, and medical plan of care. Services: Services provided to patient in accordance with Admission requirements found in Title 42 Section 412.3 of the Code of Federal Regulations Patient History Date of Service: 06/06/22 Reason for admission: Coronary Artery Disease History of Present Illness: Mr. Corey Govea is a pleasant 61 year old male who has a past medical history of coronary artery disease s/p PCI, type II diabetes mellitus, and hypertension who was admitted to [facility] following a left heart catheterization. He recently presented to our hospital for chest pain and acute coronary syndrome on 06/04/2022; however, it appears that he left prior to being completely evaluated. Full records from the last hospitalization are currently pending. He underwent a left heart catheterization today, for which two coronary stents were placed. He denies any current chest pain. He denies any obvious inciting or alleviating factors. He has not tried taking any medications at home for his symptoms. On review of systems, he denies any fevers, chills, headaches, dizziness, syncope, weakness, palpitations, shortness of breath, wheezing, cough, abdominal pain, nausea/vomiting, diarrhea, constipation, hematochezia, melena, dysuria, hematuria, myalgia, or any other symptoms. Dr. Jo has asked that he be admitted to the General Internal Medicine service for a heparin drip and observation. Allergies codeine Adverse Reaction (Intermediate, Verified 06/06/22 12:14) Nausea/Vomiting Home medications list reviewed: Yes Home Medications: Ascorbic Acid [Vitamin C] 1,000 mg PO DAILY 06/06/22 Aspirin 81 mg PO DAILY 06/06/22 Cholecalciferol (Vitamin D3) [Vitamin D3] 1,000 unit PO EVERY 3RD DAY 06/06/22 Clopidogrel Bisulfate [Plavix] 75 mg PO DAILY 06/06/22 Glipizide [Glipizide ER] 5 mg PO DAILY 06/06/22 [place]-3/Dha/Epa/Fish Oil [Fish Oil 1,000 mg Softgel] 1 each PO DAILY 06/06/22 Omeprazole Magnesium [Prilosec Otc] 20 mg PO DAILY 06/06/22 Ubidecarenone [Co Q-10] 100 mg PO DAILY 06/06/22 - Past Medical/Surgical History Diabetic: No -: Diabetes mellitus type 2 -: Hyperlipidemia -: CAD -: Appendectomy -: Cardiac catheterization Psychosocial/ Personal History: Patient has a girlfriend. - Family History Father -: Cancer, Other (see notes) Mother -: Heart disease, Hypertension - Social History Smoking Status: Former smoker Alcohol use: No CD- Drugs: No Caffeine use: Yes Review of Systems General: Unremarkable Eyes: Unremarkable ENT: Unremarkable Respiratory: Unremarkable Cardiovascular: Chest Pain (resolved) Gastrointestinal: Unremarkable Genitourinary: Unremarkable Musculoskeletal: Unremarkable Integumentary: Unremarkable Neurological: Unremarkable Lymphatics: Unremarkable Physical Examination - Vital Signs Blood Pressure: 144/82 Pulse: 96 Respirations: 16 - Physical Exam General: Alert, In no apparent distress, Oriented x3 HEENT: Atraumatic, PERRLA, Mucous membr. moist/pink, EOMI, Sclerae nonicteric Neck: Supple, JVD not distended Respiratory: Clear to auscultation bilaterally, Normal air movement Cardiovascular: No edema, Regular rate/rhythm, Normal S1 S2, No gallops, No rubs, No murmurs Gastrointestinal: Normal bowel sounds, Soft and benign, Non-distended, No tenderness, No rebound, No guarding Musculoskeletal: No clubbing, Other (right sided catheterization site is clean, dry, and intact) Integumentary: No rashes Neurological: Normal speech, Cranial nerves 3-12 intact, Normal affect Assessment and Plan - Plan # Chest Pain, with recent admission for Acute Coronary Syndrome # History of Coronary Artery Disease s/p PCI # History of Supraventricular Tachycardia # Hypertension - Cardiology consulted and spoke with Dr. oJ - recommendations appreciated - S/P C on 06/06/2022 with PCI x 2 - Recommended heparin drip - Telemetry - Continue aspirin, clopidogrel - Started rosuvastatin - Plan to start beta-itzel, PARMJIT-inhibitor/ARB as blood pressure allows # Type II Diabetes Mellitus - Correction scale insulin ordered - Hold home glipizide, empagliflozin as tolerated Ryland Aguilar M.D. Discharge Plan: Home Plan to discharge in: 24 Hours - Advance Directives Does patient have a Living Will: No Does patient have a Durable POA for Healthcare: No - Code Status/Comfort Care Code Status Assessed: Yes Code Status: Full Code
--- NOTE | 2022-06-06 18:44 | CON ---
Date of Consultation: 06/06/2022 Reason For Consultation: Acute coronary syndrome. History Of Present Illness: A 61-year-old male, patient of mine in the clinic. I saw this patient l ast week and he had symptoms suggestive of unstable angina, scheduled urgent heart catheterization fo r him to be done today and he was instructed to go the emergency room with further chest pain. On , he had significant episode of chest pain, so he presented to the emergency room and he ruled in as non-STEMI; however, the patient signed out AMA. Today, I did a coronary angiogram on him and grace correa had a thrombus on his OM stent and further narrowing of his left circumflex, so I did bifurcation s tenting on him and he did very well. Still having mild chest pain after the procedure. Past Medical History: Coronary artery disease, diabetes, dyslipidemia. Medications: Refer to reconciliation sheet for detailed list. Allergies: CODEINE. Past Surgical History: Recent cardiac stents placement in October. Family History: No premature coronary artery disease. Social History: He does not smoke or drink. Does not use any drugs. Review of Systems: All systems reviewed and they were negative except what mentioned in HPI. Physical Examination: Vital Signs: Reviewed. Head and Neck: Pupils are equal, reactive to light. Intact eye movements. No JVD. No cervical lym phadenopathy. Neck is supple. Thyroid is not enlarged. Lungs: Clear to auscultation bilaterally. No rhonchi, wheezing, or crackles. No accessory muscle u se. Heart: Regular rate and rhythm. No extra sounds. Abdomen: Soft, nontender. Bowel sounds positive. No organomegaly. No masses or hernia. No rigidi ty or rebound. Extremities: No edema, clubbing, or cyanosis. Intact pulses. Skin: No rash. Neurologic: Alert, awake, oriented x3. No acute focal deficits appreciated. Investigations: Labs are still pending. Assessment And Recommendations: 1.Non-ST elevation myocardial infarction due to acute thrombosis of his OM stent, status post succes sful percutaneous coronary intervention. I had to do bifurcation stenting today through the left cir cumflex using [place] technique and the patient did very well. Plan is to admit him, start him on hep gladys drip, and emphasize the importance of taking dual antiplatelet therapy. 2.Dyslipidemia. Start him on Lipitor 40 mg at bedtime. 3.Diabetes. Check hemoglobin A1c and tight diabetes control is recommended. /EDD Voice ID: [id number] Report ID: [id number]
[2022-06-06] MEDS ORDERED: GLUCAGON 1 MG/VIAL IM PRN (18:47)
[2022-06-06] MEDS ORDERED: NITROGLYCERIN 0.4 MG/TAB SL PRN (19:07)
[2022-06-06] MEDS ORDERED: D10W 250 ML BAG IV PRN (19:09)
--- OUTSIDE RECORDS SUMMARY | 2022-06-06 19:17 | XMS REPORT | Continuity of Care Document ---
:[address] [facility] t Address [address] [place] [address] Care Team Providers Name Role Phone Batool Norman Tasha Primary Care Physician NERIS HUDSON Attending Clinician Unavailable MATTHEW BOB Attending Clinician Unavailable Only, Ang Db Test Attending Clinician Unavailable Beth Arellano Attending Clinician Ananth Kumar DO Attending Clinician Payers Payer Name Policy Type Policy Number Effective Date Expiration Date S marcelina [facility] 2 [id number] 2020 00:00:00 Problems This patient has no known problems. Allergies, Adverse Reactions, Alerts Allergy Allergy Status Severity Reaction(s) Onset Inactive Treating Comm ents Source Name Type Date Date Clinician Codeine Propensi Active Nausea Univers ty to and/or 1-20 ity of adverse Vomiting 00:00: [place] reaction 00 [facility] s Branch CODEINE DRUG Active N/V Univers INGREDI 1-20 ity of 00:00: [place] 00 Medical Branch NO KNOWN Drug Active Univers ALLERGIE Class ity of [facility] Social History Social Habit Start Date Stop Date Quantity Comments Source Exposure to Not sure [facility] SARS-CoV-2 (event) Medica l Branch Sex Assigned At [birth year] [facility] 00:00:00 00:00:00 Medical Branch Smoking Status Start Date Stop Date Source Unknown if ever smoked [facility] Medications Ordered Filled Start Stop Current Ordering Indication Dosage Frequency Signature Comments Components Source Medication Medication Date Date Medication? Clinician (SIG) Name Name No known No Univers medications - ity of 19:43: [place] 14 [facility] methocarbam Yes 500mg 500 mg, Un rupert oL - Oral, QID, ity of (ROBAXIN[place] 18:00[place] 500 00 on Mon Medical mg 08/19/20 at Branch 1200, Until Discontinu ed, Routine methocarbam 2020- No [id number] 500mg Take 1 Univers oL 500 mg 08-19 tablet by ity of tablet 00:00: 05:59 mouth 3 [place] 00 :00 (three) Medical times [facility] daily for 5 days. Vital Signs Vital Name Observation Time Observation Value Comments Source Systolic blood 2020-08-19 18:00:00 160 mm[Hg] [facility] [place] Diastolic blood 2020-08-19 18:00:00 99 mm[Hg] [facility] Heart rate 2020-08-19 18:00:00 75 /min [facility] Respiratory rate 2020-08-19 18:00:00 18 /min [facility] Oxygen saturation in 2020-08-19 18:00:00 99 /min [facility] Arterial blood by [facility] Pulse oximetry [facility] Body temperature 2020-08-19 15:30:00 36.28 Soila [facility] Body weight 2020-08-19 15:30:00 86.183 kg [facility] Procedures Procedure Date / Time Performing Clinician Source Performed TROPONIN I 2020-08-19 18:03:00 Singer [facility] XR CHEST 1 VW 2020-08-19 15:54:35 Singer [facility] LIPASE 2020-08-19 15:36:00 Kumar, [facility] TROPONIN I 2020-08-19 15:36:00 Kumar, [facility] COMP. METABOLIC PANEL 2020-08-19 15:36:00 Ananth Kumar [facility] ([id number]) [facility] CBC WITH DIFF 2020-08-19 15:36:00 Ananth Kumar o f [facility] PROTHROMBIN TIME / INR 2020-08-19 15:36:00 [facility] 2020-08-19 15:36:00 Ananth Kumar [facility] THRMPLAS [facility] N-TERMINAL PRO-BNP 2020-08-19 15:36:00 Ananth Kumar [facility] NOTICE OF PRIVACY 2020-08-19 15:32:34 Doctor Unassigned, No [facility] Name [facility] Branch CONSENT/REFUSAL FOR 2020-08-19 15:26:12 Doctor Unassigned, No [facility]AT[facility] Name [facility] Encounters Start End Encounter Admission Attending Care Care Encounter Source Date/Time Date/Time Type Type Clinicians Facility Department ID 2022-05-16 2022-05-16 Outpatient PREVIVI GALINDO [id number] Vivi 15:30:00 15:30:00 NERIS phillips 2022-02-07 2022-02-07 Telemedici [facility] [id number] Vivi 10:45:00 10:45:00 ne BARBY, MEDICAL & 350.1.13.13 ybneto MATTHEW DIAGNOSTI [id number] [facility] [id number] 2021-08-19 2021-08-19 Laboratory Only, Ang Db Test [facility] 1.2.8 40.114 [id number] Univers 19:45:00 19:45:00 Only Josh Beth [facility] [id number] ity of [place] 4.2.7.2.686 Jalil as KIM?BLEA [id number] La dical [address] MEDICAL OFFICE BUILDING 2020-08-19 2020-08-19 Emergency Singer [facility] [id number] Univers 09:26:00 13:31:00 Ananth Canales 350.1.13.10 i [place] 4[place]7.2.686 [place] [id number] [facility] 084 Branch 2020-08-19 2020-08-19 Emergency X [place] ERT [id number] Univers 09:26:00 09:26:00 [facility] Results Test Description Test Time Test Comments Results Result Comments Source TROPONIN I 2020-08-19 18:43:00 Test Item Value Reference Range Interpretation Comme nts TROPONIN I (test code = <0.012 See_Comment [Au tomated message] The 0388258207) system which ge nerated this result tra [...] ? Lab Interpretation (test Normal code = 28231-8) [facility] 16:12[facility]00 Test Item Value Reference Range Interpretation Comments APTT Patient (test See_Comment [Automat ed code = 3173-2) message] The system which generated this result transmitted reference range : 23 - 38 Seconds . The reference range was not used to interpr et this result as normal/abnormal . CANDIDO (test code = CANDIDO) The [facility] patient population mean normal value for aPTT is 30 seconds. Lab Interpretation Normal (test code = 47617-5) [facility] [id number] 16:10:00 Test Item Value Reference Range Interpretation Comments TROPONIN I (test <0.012 See_Comment [Automated code = 2067483801) message] The system which generated this result [...] ? Lab Interpretation Normal (test code = 70664-3) [facility] / [id number] 16:10:00 Test Item Value Reference Range Interpretation Comments PROTIME PATIENT (test See_Comment [Auto mated message] code = 5964-2) The system [employer] ich generated this result transmitted ref erence range: 12.0 - 1 4.7 Seconds. The re ference range was not u sed to interpret this result as normal/abnor mal. INR (test code = 6301-6) Nor mal INR <1.1; Warfarin Therap eutic range 2.0 to 3. 0 or 2.5 to 3.5, dep ending upon the indica tions. Lab Interpretation (test Normal code = 04720-2) [facility]AL [id number] 16:07:00 Test Item Value Reference Range Interpretation Comments NT-proBNP (test code 100 pg/mL See_Comment [Autom ated = 8967729040) message] The system which generated this result transmitted reference range : <=125. The reference range was not used to interpret this result as normal/abnormal . CANDIDO (test code = CANDIDO) Biotin has been reported to cause a negative bias, interpret results relative to patient's use of biotin. Lab Interpretation Normal (test code = 20212-5) [facility]. METABOLIC PANEL (70125)2020-08-19 15:59:00 Test Item Value Reference Range Interpretation Comments NA (test code = 139 mmol/L 135-145 6798451946) K (test code = 3.7 mmol/L 3.5-5 5042863457) CL (test code = 99 mmol/L 98-108 0194097825) CO2 TOTAL (test code = 28 mmol/L 23-31 2724123550) AGAP (test code = 2-16 2955418518) BUN (test code = 16 mg/dL 7-23 6762342259) GLUCOSE (test code = 239 mg/dL 70-110 H 4183095667) CREATININE (test code = 0.82 mg/dL 0.6-1.25 6532133042) TOTAL BILI (test code = 0.6 mg/dL 0.1-1.9 2857576332) CALCIUM (test code = 8.7 mg/dL 8.6-10.6 6030745483) T PROTEIN (test code = 7.7 g/dL 6.3-8.2 5712193423) ALBUMIN (test code = 4.6 g/dL 3.5-5 3080188832) ALK PHOS (test code = 90 U/L 34-122 6399876325) ALTv (test code = 64 U/L 5-50 H 1742-6) AST(SGOT) (test code = 46 U/L 13-40 H 1903857169) eGFR Calculation mL/min/1.73m2 (Non-) (test code = 7671625855) eGFR Calculation mL/min/1.73m2 () (test code = 6026683470) CANDIDO (test code = CANDIDO) Association of [...] tests). Lab Interpretation Abnormal (test code = 56259-5) [facility], [id number] 15:58:00 Test Item Value Reference Range Interpretation Comments LIPASE (test code = 6298482368) 78 U/L 0-220 Lab Interpretation (test code = Normal 38321-3) [facility] 1 [id number] 15:56:01HISTORY: Chest pain. TECHNIQUE: Portable AP erect view of the chest is obtained. No prior cheststudyavailable for comparison. FINDINGS: No acute pneumonia. No pneumothorax or pleural effusion orpulmonary congestion detected. Cardiac size is within upper normal limits. CONCLUSIONS: No signs of acute cardiopulmonary disease.[facility], Radiant Results Inft User - 08/19/2020 9:57 AM CSTHISTORY: Chest pain.TECHNIQUE: Portable AP erect view of the chest is obtained. No prior cheststudy available for comparison.FINDINGS: No acute pneumonia. No pneumothorax or pleural effusion orpulmonary congestion detected. Cardiac size is within upper normal limits. CONCLUSIONS: No signs of acute cardiopulmonary disease.[facility] WITH [id number] 15:45:00 Test Item Value Reference Range Interpretation Comments WBC (test code = See_Comment [Automated 6690-2) message] The sy stem which generated this result transmitted reference range : 4.20 - 10.70 10*3/?L. The reference range was not used to interpret this result as normal/abnormal . RBC (test code = See_Comment [Automated 789-8) message] The sy stem which generated this [...] RDW-SD (test code = 41.5 fL 38.5-51.6 81157-1) RDW-CV (test code = 12.9 % 12.1-15.4 788-0) PLT (test code = See_Comment [Automated 777-3) message] The sy stem which generated this result transmitted reference range : 150 - 328 10*3/ ?L. The reference r jass was not used to interpret this result as normal/abnormal . MPV (test code = 10.1 fL 9.8-13 29673-2) NRBC/100 WBC (test See_Comment [Automat ed code = 9938812638) message] The system which generated this result transmitted reference range : 0.0 - 10.0 /100 WBCs. The refer ence range was not u sed to interpret th is result as normal/abnormal . NRBC x10^3 (test code <0.01 See_Comment [Auto mated = 0230056312) message] The s ystem which generated this result transmitted reference range : 10*3/?L. The reference range was not used to interpret this result as normal/abnormal . GRAN MAT (NEUT) % 77.2 % (test code = 770-8) IMM GRAN % (test code 0.50 % = 7569278573) LYMPH % (test code = 16.4 % 736-9) MONO % (test code = 4.8 % 5905-5) EOS % (test code = 0.6 % 713-8) BASO % (test code = 0.5 % 706-2) GRAN MAT x10^3(ANC) 8.12 10*3/uL 1.99-6.95 H (test code = 5006159807) IMM GRAN x10^3 (test 0.05 10*3/uL 0-0.06 code = 4005640323) LYMPH x10^3 (test code 1.73 10*3/uL 1.09-3.23 = 731-0) MONO x10^3 (test code 0.51 10*3/uL 0.36-1.02 = 742-7) EOS x10^3 (test code = 0.06 10*3/uL 0.06-0.53 711-2) BASO x10^3 (test code 0.05 10*3/uL 0.01-0.09 = 704-7) Lab Interpretation Abnormal (test code = 16814-2) [facility]"
[2022-06-06] MEDS ORDERED: NA CHLORIDE 0.9% 1,000 ML IV SCH (20:00)
[2022-06-06 20:32] LABS: Protime INR 1.14
[2022-06-06] MEDS: INSULIN -REGULAR HUMAN 50 UNIT/0.5 ML ML SQ SCH (20:43)
[2022-06-06] MEDS: ACETAMINOPHEN 325 MG TABLET PO PRN (20:45)
[2022-06-06] MEDS ORDERED: ROSUVASTATIN 10 MG TAB PO SCH (21:00)
[2022-06-06] MEDS: ENOXAPARIN 80 MG/0.8 ML SQ SCH (21:42)
[2022-06-06] MEDS ORDERED: HEPARIN/D5W 25,000 UNIT/500 ML BAG IV PRN (22:00)
[2022-06-06] MEDS ORDERED: HEPARIN/D5W 25,000 UNIT/500 ML BAG IV SCH (22:00)
[2022-06-06 22:52] VITALS: BMI 27.4
[2022-06-07] MEDS: ACETAMINOPHEN 325 MG TABLET PO PRN ×2 (00:26→06:10)
--- NOTE | 2022-06-07 01:00 | OP ---
Date of Procedure: 06/06/2022 Surgeon: MATEO GONZALEZ Procedures Performed: 1.Selective coronary angiogram. 2.PCI of severe proximal OM disease and into the left circ. 3.PCI of severe ostial and proximal left circumflex disease with bifurcation stenting. I used a 3.0 x 12 mm Synergy drug-eluting stent in the ostial OM into the left circ, overlapping with the old mary nt and I used 3.0 x 16 mm Synergy drug-eluting stent in the ostial left circ into the mid left circ a nd then I used bilateral balloon inflation kissing, I used 3.0 x 20 in the OM and 2.75 x 20 in the le ft circ and got excellent results. DIRK-1 flow was in both arteries prior to the PCI. Post PCI, it is DIRK-3 flow and 0% residual stenosis. Indication: Non-ST elevation myocardial infarction recently. Access: Right radial artery 6-Central African closed with TR band. Complications: None. Estimated Blood Loss: Bleeding less than 20 mL. Anesthesia: Total sedation time was 65 minutes, used fentanyl and Versed. Description Of Procedure: After risks, benefits, and alternatives were explained, patient agreed to the procedure and signed informed consent. Patient was brought into the cardiac catheterization labo [facility] and prepped and draped in usual sterile fashion. Then I accessed right radial artery using pe diatric micropuncture kit, placed a 6-Central African Slender sheath and took a 5-[place] 4 catheter into the aortic root, engaged left main and right coronary artery, took standard views and LVEDP was silvana ured by pushing the catheter over the wire into the LV. Pullback did not record any gradient. Then, I gave systemic heparin to ensure ACT level above 250 and then I took a EBU 3.5 guide into the aorti c root, engaged left main and took 2 Runthrough wires, one into the OM and one to the left circ and r edilated both lesions. There was a thrombosis within the stent of the OM and the proximal left circ. After redilation established DIRK-3 flow and then I stented the OM into the left circ using a 3.0 x 12 mm Synergy drug-eluting stent overlapped with the old stent and the overlapped area was post dila ethan and then using the culotte technique, I stented the left circumflex through the OM stent and then did bilateral inflation kissing using a 3.0 x 20 in the OM and 2.75 x 20 mm NC balloons in the left circ. Simultaneous inflation with excellent results. I then removed the balloons and the wires. Fi nal angiogram was satisfactory. I then removed the guide and the sheath and placed TR band with good hemostasis. Findings: 1.Left main: Large and normal. 2.LAD: Large and has a patent proximal to mid LAD stent without restenosis. Diagonal branches are with mild disease, 10%-20%. 3.Left circumflex: Proximal 90% and then when the OM takes off, it is 99% with a thrombus within th e stent and then the circumflex in the mid portion becomes diffusely diseased at 60% very long segmen t. 4.RCA: Appears to be small and nondominant. HELP DESK ENGINEER in the proximal to mid with collaterals. 5.LVEDP normal at 5 mmHg. Conclusion: 1.Severe OM and left circumflex stenosis, status post bifurcation stenting as above. 2.RCA HELP DESK ENGINEER with collateral flow. 3.Patent LAD stent. Plan: 1.Dual antiplatelet high-dose statin. Emphasized to him the importance of taking antiplatelet thera py on a regular basis. 2.We will admit him overnight for IV heparin and plan for discharge tomorrow if no complications. SR/MODL Voice ID: [id number] Report ID: [id number]
[2022-06-07 03:14] LABS: Absolute Lymphocytes (CBC) 1.5 K/uL (0.7-4.9); Hematocrit 39.1 % (39.6-49.0); Lymphocytes % 15.2 % (15.3-44.8); MCV 86.7 fL (80-100); MPV 7.7 fL (7.6-11.3); RBC Red Blood Cell Count 4.51 M/uL (4.33-5.43)
[2022-06-07 03:30] LABS: Magnesium 2.2 mg/dL (1.8-2.4); Phosphorus 2.8 mg/dL (2.5-4.9); Potassium 3.8 mmol/L (3.5-5.1)
[2022-06-07] MEDS ORDERED: METOPROLOL TAR 25 MG TAB PO SCH (08:37)
--- NOTE | 2022-06-07 08:44 | P.DS ---
Admission Date: 06/06/22 Discharge Date: 06/07/22 Disposition: ROUTINE DISCHARGE Discharge Condition: GOOD Reason for Admission: Coronary Artery Disease Consultations: 1. Cardiology Procedures: - 06/06/2022 = Acute OM Stent Thrombosis s/p Bifurcation Stenting of Left Circumflex Artery Hospital Course: DIAGNOSES: # Unstable Angina with Non-ST Segment Elevation Myocardial Infarction secondary to Acute OM Stent Thrombosis s/p Bifurcation Stenting of Left Circumflex Artery (06/06/2022) # Coronary Artery Disease s/p PCI # History of Supraventricular Tachycardia # Hypertension # Type II Diabetes Mellitus HOSPITAL COURSE: Mr. Corey Govea is a pleasant 61-year-old male with a past medical history significant for coronary artery disease s/p PCI, type 2 diabetes mellitus, and hypertension who was admitted to the [facility] on 06/06/2022 for observation following a left heart catheterization with percuta neous coronary intervention. He was admitted to the Medicine service following the procedure. He did well and was started on a heparin drip per Dr. Jo's recommendations. However, he refused the heparin drip due to the frequent lab draws. Per Cardiology recommendations, he was started on enoxaparin and monitored overnight. He did well overnight and was seen by Dr. Jo in the morning. He assures us that he has been compliant on his dual antiplatelet therapy, so there is concern that the clopidogrel has not been working as expected. He was transitioned to ticagrelor and instructed to discontinue his home clopidogrel. He verbalized understanding. Dr. Jo has cleared him for discharge with aspirin, rosuvastatin, metoprolol, and ticagrelor. On 06/07/2022, he was seen on morning rounds and deemed medically stable for discharge. He was discharged with instructions to schedule follow-up appointments with his PCP (MOLLY Bailon) and his youth court judge (Dr. Jo). He was provided prescriptions for rosuvastatin, metoprolol, and ticagrelor. He and his were given the opportunity to ask questions and reported no further questions. Furthermore, all questions were answered to the best of my ability. A copy of this discharge summary will be sent to the above providers to facilitate continuity of care. Today, I personally spent 20 minutes on his case, of which greater than 50% of the time was spent in patient education, counseling, and coordination of care as described above. - Physical Exam General: Alert, In no apparent distress, Oriented x3 HEENT: Atraumatic, PERRLA, Mucous membr. moist/pink, EOMI, Sclerae nonicteric Neck: Supple, JVD not distended Respiratory: Clear to auscultation bilaterally, Normal air movement Cardiovascular: No edema, Regular rate/rhythm, Normal S1 S2, No gallops, No rubs, No murmurs Gastrointestinal: Normal bowel sounds, Soft and benign, Non-distended, No tenderness, No rebound, No guarding Musculoskeletal: No clubbing, Other (right sided wrist catheterization site is clean, dry, and intact, without evidence of hematoma) Integumentary: No rashes Neurological: Normal speech, Cranial nerves 3-12 intact, Normal affect Vital Signs/Physical Exam: Temp Pulse Resp BP Pulse Ox 97.7 F 83 18 124/82 96 06/07/22 06:00 06/07/22 06:00 06/07/22 06:00 06/07/22 06:00 06/07/22 04:00 Laboratory Data at Discharge: WBC 9.90 K/uL (4.3-10.9) 06/07/22 03:01 Hgb 13.2 g/dL (13.6-17.9) L 06/07/22 03:01 Hct 39.1 % (39.6-49.0) L 06/07/22 03:01 Plt Count 244 K/uL (152-406) 06/07/22 03:01 PT 12.5 SECONDS (9.5-12.5) 06/06/22 20:21 INR 1.14 06/06/22 20:21 Sodium 139 mmol/L (136-145) 06/07/22 03:01 Potassium 3.8 mmol/L (3.5-5.1) 06/07/22 03:01 BUN 21 mg/dL (7-18) H 06/07/22 03:01 Creatinine 0.83 mg/dL (0.55-1.3) 06/07/22 03:01 Glucose 134 mg/dL (74-106) H 06/07/22 03:01 Phosphorus 2.8 mg/dL (2.5-4.9) 06/07/22 03:01 Magnesium 2.2 mg/dL (1.8-2.4) 06/07/22 03:01 Home Medications: RX: Ascorbic Acid [Vitamin C] 1,000 mg PO DAILY 06/06/22 RX: Aspirin 81 mg PO DAILY 06/06/22 RX: Cholecalciferol (Vitamin D3) [Vitamin D3] 1,000 unit PO EVERY 3RD DAY 06/06/22 RX: Glipizide [Glipizide ER] 5 mg PO DAILY 06/06/22 RX: [place]-3/Dha/Epa/Fish Oil [Fish Oil 1,000 mg Softgel] 1 each PO DAILY 06/06/22 RX: Omeprazole Magnesium [Prilosec Otc] 20 mg PO DAILY 06/06/22 RX: Ubidecarenone [Co Q-10] 100 mg PO DAILY 06/06/22 RX: Metoprolol Tartrate [Lopressor*] 12.5 mg PO BID 6AM 6PM #30 tab 06/07/22 RX: Rosuvastatin Calcium 20 mg PO DAILY #30 tab 06/07/22 Ticagrelor [Brilinta] 90 mg PO BID #60 tab 06/07/22 New Medications: Ticagrelor [Brilinta] 90 mg PO BID #60 tab RX: Metoprolol Tartrate [Lopressor*] 12.5 mg PO BID 6AM 6PM #30 tab RX: Rosuvastatin Calcium 20 mg PO DAILY #30 tab Physician Discharge Instructions: 1. Please schedule a follow-up appointment with your PCP (MOLLY Bailon) in 3-5 days 2. Please schedule a follow-up appointment with Cardiology (Dr. Jo) in 5-7 days - Please start taking ticagrelor (Brilinta), with your first dose this evening (06/07/2022) - Please completely stop taking clopidogrel (Plavix) Diet: AHA Activity: Ad linda Followup: Rogers Jo MD [ACTIVE - CAN ADMIT] - (call to schedule appointment.) Elisabeth Bailon FNP [Primary Care Provider] - (Call to schedule appointment.) Time spent managing pt's care (in minutes): 20
[2022-06-07] MEDS ORDERED: TICAGRELOR 90 MG TABLET PO ONE (08:45)
[2022-06-07] MEDS: INSULIN -REGULAR HUMAN 50 UNIT/0.5 ML ML SQ SCH (08:52)
[2022-06-07] MEDS: ENOXAPARIN 80 MG/0.8 ML SQ SCH (08:57)
[2022-06-07 08:59] VITALS: BP 118/75
[2022-06-07] MEDS ORDERED: CLOPIDOGREL 75 MG TABLET PO SCH (09:00)
[2022-06-07] MEDS ORDERED: ASPIRIN 81 MG CHEWABLE TABLET PO SCH (09:00)
[2022-06-07 15:17] VITALS: TEMP 96.9; O2SAT 98
--- NOTE | 2022-06-07 17:12 | PN ---
Date of Progress Note: 06/07/2022 Subjective: Seen by bedside. Did well overnight. No chest pain. Review of Systems: No chest pain, shortness of breath, orthopnea, cough. No nausea, vomiting, diarrhea. No abdominal p ain. No dysuria, polyuria, or urinary urgency. No skin rash, headache. No nasal congestion. All o ther systems reviewed and they were negative. Physical Examination: Vital Signs: Reviewed. Head and Neck: Pupils are equal, reactive to light. Intact eye movements. No JVD. No cervical lym phadenopathy. Neck is supple. Thyroid is not enlarged. Lungs: Clear to auscultation bilaterally. No rhonchi, wheezing, or crackles. No accessory muscle u se. Heart: Regular rate and rhythm. No extra sounds. Abdomen: Soft, nontender. Bowel sounds positive. No organomegaly. No masses or hernia. No rigidi ty or rebound. Extremities: No edema, clubbing, or cyanosis. Intact pulses. Skin: No rash. Neurologic: Alert, awake, oriented x3. No acute focal deficits appreciated. Lymph Nodes: No cervical or axillary lymphadenopathy. Investigations: Labs were reviewed. Assessment And Recommendations: 1.Non-ST elevation myocardial infarction, status post percutaneous coronary intervention, bifurcatio n stenting of left circ and OM1. Did great overnight. The patient is pain free. Switch the Plavix to Brilinta. Likely, he had resistant to Plavix, so I am going to load him with 180 mg now and the p atient has Brilinta at home, start taking the second dose at 10 o'clock p.m. tonight and then twice a day after that. Baby aspirin every day, high-dose statin. Follow up with me in the office in 1 jared cormier. The patient can be discharged from Cardiology standpoint. 2.Dyslipidemia. Continue high-dose statin. SR/MODL Voice ID: [id number] Report ID: [id number]
== END 2022-06-07 11:06 | disposition home or self-care (01) ==
LOC: SUATTDRO 13:10 → CCL 13:10 → 4TH 19:14
PROVIDERS: ADMIT Internal Medicine; ATTEND Internal Medicine
DX: I21.4 Non-ST elevation (NSTEMI) myocardial infarction (principal); I25.110 Atherosclerotic heart disease of native coronary artery with unstable angina pectoris; I25.82 Chronic total occlusion of coronary artery; I47.1 Supraventricular tachycardia; I10 Essential (primary) hypertension; E78.5 Hyperlipidemia, unspecified; E11.9 Type 2 diabetes mellitus without complications; Z95.5 Presence of coronary angioplasty implant and graft; Z87.891 Personal history of nicotine dependence; Z79.02 Long term (current) use of antithrombotics/antiplatelets; Z79.82 Long term (current) use of aspirin; Z79.899 Other long term (current) drug therapy; Z88.5 Allergy status to narcotic agent; Z82.49 Family history of ischemic heart disease and other diseases of the circulatory system; Z80.9 Family history of malignant neoplasm, unspecified
CPT/HCPCS: 85025; 80048; 36415; 83735; 84100; 85610; 82947 ×4; 85347 ×2; 92928; 92929; 93458; G0379; C1893; Q9967; C1725; J1815; J1644 ×2; J2250; J7040 ×2; J7030; G0378 ×2; J0461

== ENCOUNTER 2022-07-01 11:00 | Day surgery (SDC) | payer BC ==
[2022-06-30 11:15] LABS: Hematocrit 45.7 % (39.6-49.0); Lymphocytes % 24.4 % (15.3-44.8); MCV 85.7 fL (80-100); RBC Red Blood Cell Count 5.33 M/uL (4.33-5.43)
[2022-06-30 11:23] LABS: Protime INR 1.01
[2022-07-01] MEDS ORDERED: NA CHLORIDE 0.9% 500 ML ONE (11:33)
[2022-07-01] MEDS ORDERED: HEPA 1000U/500MLS 1,000 UNIT/500 ML BAG IV ONE (11:47)
[2022-07-01] MEDS ORDERED: MIDAZOLAM HCL 2 MG/2 ML INJ ONE ×2 (11:48→12:10)
[2022-07-01] MEDS ORDERED: FENTANYL CITR 100 MCG/2 ML ONE (11:48)
[2022-07-01] MEDS ORDERED: VERAPAMIL HCL 10 MG/4 ML VIAL IV ONE (11:49)
[2022-07-01] MEDS ORDERED: HEPARIN 10,000 UNIT/10 ML VIAL IV ONE (11:49)
[2022-07-01] MEDS ORDERED: HEPARIN 5000 UNIT/ML 1 ML VIAL ONE (11:49)
[2022-07-01] MEDS ORDERED: NITROGLYCERIN 100 MCG/ML SYR (for cath lab use only) IV ONE (11:49)
[2022-07-01] MEDS ORDERED: NITROGLYCERIN/D5W 25 MG/250 ML BTL IV ONE (11:50)
[2022-07-01] MEDS ORDERED: ATROPINE SULF 1 MG/10 ML SYR IV ONE (11:50)
[2022-07-01] MEDS ORDERED: HEPA 1000U/500MLS 2,000 UNIT/1,000 ML BAG IV ONE (12:42)
[2022-07-01] MEDS ORDERED: LIDOCAINE 1% 20 ML MDV ONE (12:42)
[2022-07-01 13:42] VITALS: TEMP 98
[2022-07-01 14:46] VITALS: BP 113/85; O2SAT 97
--- NOTE | 2022-07-01 21:27 | OP ---
Date of Procedure: 07/01/2022 Surgeon: MATEO GONZALEZ Procedure Performed: Selective coronary angiogram. Access: Right radial artery 6-Macedonian closed with TR band. Complications: None. Estimated Blood Loss: Bleeding less than 10 mL. Indication: Unstable angina with known history of coronary artery disease. Description Of Procedure: After risks, benefits, and alternatives were explained, patient agreed to procedure and signed informed consent. Patient was brought into the cardiac catheterization laborato ry and prepped and draped in usual sterile fashion. I used fentanyl and Versed in incremental doses to achieve adequate moderate sedation. Total sedation time was 20 minutes. Then I accessed right rad ial artery using pediatric micropuncture kit, placed a 6-Macedonian Slender sheath and took 5-Macedonian Tige r 4 catheter in the aortic root over a J-wire, engaged left main and right coronary artery, took mily dard views and then removed the catheter and sheath and placed TR band with good hemostasis. Findings: 1.Left main: Large and normal. 2.LAD: Moderate-size vessel with patent proximal to mid LAD stent, normal diagonal branches. 3.Left circumflex: Patent proximal to mid left circumflex stent and patent OM stent and then in the left circumflex in the mid to distal portion, there is diffuse 50% to 60% stenosis and is very long and the artery is less than 2 mm in diameter. 4.RCA: A proximal SAP FICO ARCHITECT with O2 collaterals and collaterals from the LAD. Conclusion: 1.Patent LAD and left circumflex stents. 2.RCA SAP FICO ARCHITECT is known with collaterals from the left and O2 collaterals. 3.Moderate left circumflex stenosis residual. Plan: 1.Continue Effient, aspirin, and statin. 2.Cardiac lifestyle modifications. SR/MODL Voice ID: [id number] Report ID: [id number]
== END 2022-07-01 14:47 | disposition home or self-care (01) ==
LOC: CCL 11:00
PROVIDERS: ATTEND Internal Medicine
DX: I25.110 Atherosclerotic heart disease of native coronary artery with unstable angina pectoris (principal); I25.82 Chronic total occlusion of coronary artery; I10 Essential (primary) hypertension; E78.5 Hyperlipidemia, unspecified; E11.9 Type 2 diabetes mellitus without complications; Z95.5 Presence of coronary angioplasty implant and graft; Z87.891 Personal history of nicotine dependence; Z79.82 Long term (current) use of aspirin; Z79.84 Long term (current) use of oral hypoglycemic drugs; Z79.899 Other long term (current) drug therapy; Z88.0 Allergy status to penicillin
CPT/HCPCS: 85025; 80048; 36415; 85610; 85730; 93454; 76937; C1893; Q9966; J1644 ×3; J2250; J3010; J7040; J0461

== ENCOUNTER 2023-03-23 06:03 | Emergency (ER) | payer BC ==
--- OUTSIDE RECORDS SUMMARY | 2023-03-23 06:07 | XMS REPORT | Continuity of Care Document ---
:1960 Author Organization [facility] t Address [address] [place] [address] [place] [id number] Care Team Providers Name Role Phone Norman Renae Tasha Primary Care Physician NERIS HUDSON Attending Clinician Unavailable MATTHEW BOB Attending Clinician Unavailable Only, Ang Db Test Attending Clinician Unavailable Beth Arellano Attending Clinician Ananth Kumar DO Attending Clinician Payers Payer Name Policy Type Policy Number Effective Date Expiration Date S marcelina [facility] 2 [id number] 2020 00:00:00 Problems This patient has no known problems. Allergies, Adverse Reactions, Alerts Allergy Allergy Status Severity Reaction(s) Onset Inactive Treating Comm ents Source Name Type Date Date Clinician Codeine Propensi Active Nausea Univers ty to and/or 1-20 ity of adverse Vomiting 00:00: [place] reaction 00 [facility] s Branch CODEINE DRUG Active N/V Univers INGREDI 1-20 ity of 00:00: [place] 00 Medical Branch NO KNOWN Drug Active Univers ALLERGIE Class ity of [facility] Social History Social Habit Start Date Stop Date Quantity Comments Source Exposure to Not sure [facility] SARS-CoV-2 (event) Medica l Branch Sex Assigned [birth year] [facility] 00:00:00 00:00:00 Medical Branch Smoking Status Start Date Stop Date Source Unknown if ever smoked [facility] Medications Ordered Filled Start Stop Current Ordering Indication Dosage Frequency Signature Comments Components Source Medication Medication Date Date Medication? Clinician (SIG) Name Name No known No Univers medications - ity of 19:43: [place] 14 [facility] methocarbam Yes 500mg 500 mg, Un rupert oL - Oral, QID, ity of (ROBAXIN[place] 18:[place] 500 00 on Mon Medical mg 08/19/20 at Branch 1200, Until Discontinu ed, Routine methocarbam 2020- No [id number] 500mg Take 1 Univers oL 500 mg 08-19 tablet by ity of tablet 00:00: 05:59 mouth 3 [place] 00 :00 (three) Medical times [place] daily for 5 days. Vital Signs Vital Name Observation Time Observation Value Comments Source Systolic blood 2020-08-19 18:00:00 160 mm[Hg] [facility] Diastolic blood 2020-08-19 18:00:00 99 mm[Hg] [facility] Heart rate 2020-08-19 18:00:00 75 /min [facility] Respiratory rate 2020-08-19 18:00:00 18 /min [facility] Oxygen saturation in 2020-08-19 18:00:00 99 /min [facility] Arterial blood by [facility] Pulse oximetry [place] Body temperature 2020-08-19 15:30:00 36.28 Soila [facility] Body weight 2020-08-19 15:30:00 86.183 kg [facility] Procedures Procedure Date / Time Performing Clinician Source Performed TROPONIN I 2020-08-19 18:03:00 Singer [facility] XR CHEST 1 VW 2020-08-19 15:54:35 Singer [facility] LIPASE 2020-08-19 15:36:00 Kumar, [facility] TROPONIN I 2020-08-19 15:36:00 Kumar, [facility] COMP. METABOLIC PANEL 2020-08-19 15:36:00 Ananth Kumar [facility] ([id number]) [facility] CBC WITH DIFF 2020-08-19 15:36:00 Ananth Kumar o f [facility] PROTHROMBIN TIME / INR 2020-08-19 15:36:00 [facility] 2020-08-19 15:36:00 Ananth Kumar [facility] THRMPLAS [facility] N-TERMINAL PRO-BNP 2020-08-19 15:36:00 Ananth Kumar [facility] NOTICE OF PRIVACY 2020-08-19 15:32:34 Doctor Unassigned, No [facility] Branch CONSENT/REFUSAL FOR 2020-08-19 15:26:12 Doctor Unassigned, No [facility] Name [facility] Encounters Start End Encounter Admission Attending Care Care Encounter Source Date/Time Date/Time Type Type Clinicians Facility Department ID 2022-05-16 2022-05-16 Outpatient PREVIVI GALINDO [id number] Vivi 15:30:00 15:30:00 NERIS phillips 2022-02-07 2022-02-07 Telemedici [facility] [id number] Vivi 10:45:00 10:45:00 ne BARBY, MEDICAL & [id number] ybneto MATTHEW DIAGNOSTI [id number] [facility] [id number] 2021-08-19 2021-08-19 Laboratory Only, Ang Db Test [facility] 1.2.8 [id number] [id number] Univers 19:45:00 19:45:00 Only Josh Beth [facility] [id number] ity of [place] 4.2.7.2.686 Jalil as KIM?BLEA [id number] Wi dical [address] MEDICAL OFFICE BUILDING 2020-08-19 2020-08-19 Emergency Singer [facility] [id number] Univers 09:26:00 13:31:00 Ananth Canales [id number] i [place] 4[place]2.7.2.686 [place] [id number] [facility] 084 Branch 2020-08-19 2020-08-19 Emergency X [place] ERT [id number] Univers 09:26:00 09:26:00 [facility] Results Test Description Test Time Test Comments Results Result Comments Source TROPONIN I 2020-08-19 18:43:00 Test Item Value Reference Range Interpretation Comme nts TROPONIN I (test code = <0.012 See_Comment [Au tomated message] The 6804470048) system which ge nerated this result tra [...] ? Lab Interpretation (test Normal code = 41122-3) [facility] 16:12:00 Test Item Value Reference Range Interpretation Comments APTT Patient (test See_Comment [Automat ed code = 3173-2) message] The system which generated this result transmitted reference range : 23 - 38 Seconds . The reference range was not used to interpr et this result as normal/abnormal . CANDIDO (test code = CANDIDO) The [facility] patient population mean normal value for aPTT is 30 seconds. Lab Interpretation Normal (test code = 80566-4) [facility] [id number] 16:10:00 Test Item Value Reference Range Interpretation Comments TROPONIN I (test <0.012 See_Comment [Automated code = 9715904433) message] The system which generated this result [...] ? Lab Interpretation Normal (test code = 23899-0) [facility] / [id number] 16:10:00 Test Item Value Reference Range Interpretation Comments PROTIME PATIENT (test See_Comment [Auto mated message] code = 5964-2) The system Adfaces ich generated this result transmitted ref erence range: 12.0 - 1 4.7 Seconds. The re ference range was not u sed to interpret this result as normal/abnor mal. INR (test code = 6301-6) Nor mal INR <1.1; Warfarin Therap eutic range 2.0 to 3. 0 or 2.5 to 3.5, dep ending upon the indica tions. Lab Interpretation (test Normal code = 35594-5) [facility] [id number] 16:07:00 Test Item Value Reference Range Interpretation Comments NT-proBNP (test code 100 pg/mL See_Comment [Autom ated = 4367044561) message] The system which generated this result transmitted reference range : <=125. The reference range was not used to interpret this result as normal/abnormal . CANDIDO (test code = CANDIDO) Biotin has been reported to cause a negative bias, interpret results relative to patient's use of biotin. Lab Interpretation Normal (test code = 22114-5) [facility]. METABOLIC PANEL ([id number])2020-08-19 15:59:00 Test Item Value Reference Range Interpretation Comments NA (test code = 139 mmol/L 135-145 7592509911) K (test code = 3.7 mmol/L 3.5-5 8951299765) CL (test code = 99 mmol/L 98-108 2529835376) CO2 TOTAL (test code = 28 mmol/L 23-31 1324499937) AGAP (test code = 2-16 0653745570) BUN (test code = 16 mg/dL 7-23 1872105791) GLUCOSE (test code = 239 mg/dL 70-110 H 2860548363) CREATININE (test code = 0.82 mg/dL 0.6-1.25 5544258627) TOTAL BILI (test code = 0.6 mg/dL 0.1-1.5 5936002413) CALCIUM (test code = 8.7 mg/dL 8.6-10.6 3412220259) T PROTEIN (test code = 7.7 g/dL 6.3-8.2 2996802539) ALBUMIN (test code = 4.6 g/dL 3.5-5 1419011040) ALK PHOS (test code = 90 U/L 34-122 9379125319) ALTv (test code = 64 U/L 5-50 H 1742-6) AST(SGOT) (test code = 46 U/L 13-40 H 0584337163) eGFR Calculation mL/min/1.73m2 (Non-) (test code = 4274115727) eGFR Calculation mL/min/1.73m2 () (test code = 0948461934) CANDIDO (test code = CANDIDO) Association of [...] tests). Lab Interpretation Abnormal (test code = 67314-0) [facility], [id number] 15:58:00 Test Item Value Reference Range Interpretation Comments LIPASE (test code = 4815617205) 78 U/L 0-220 Lab Interpretation (test code = Normal 60222-9) [facility] 1 [id number] 15:56:01HISTORY: Chest pain. TECHNIQUE: Portable AP erect view of the chest is obtained. No prior cheststudyavailable for comparison. FINDINGS: No acute pneumonia. No pneumothorax or pleural effusion orpulmonary congestion detected. Cardiac size is within upper normal limits. CONCLUSIONS: No signs of acute cardiopulmonary disease.[facility], Radiant Results Inft User - 08/19/2020 9:57 AM CSTHISTORY: Chest pain.TECHNIQUE: Portable AP erect view of the chest is obtained. No prior cheststudy available for comparison.FINDINGS: No acute pneumonia. No pneumothorax or pleural effusion orpulmonary congestion detected. Cardiac size is within upper normal limits. CONCLUSIONS: No signs of acute cardiopulmonary disease.[facility] WITH [id number] 15:45:00 Test Item Value Reference Range Interpretation [...] RDW-SD (test code = 41.5 fL 38.5-51.6 25437-1) RDW-CV (test code = 12.9 % 12.1-15.4 788-0) PLT (test code = See_Comment [Automated 777-3) message] The sy stem which generated this result transmitted reference range : 150 - 328 10*3/ ?L. The reference r jass was not used to interpret this result as normal/abnormal . MPV (test code = 10.1 fL 9.8-13 14431-4) NRBC/100 WBC (test See_Comment [Automat ed code = 1375221325) message] The system which generated this result transmitted reference range : 0.0 - 10.0 /100 WBCs. The refer ence range was not u sed to interpret th is result as normal/abnormal . NRBC x10^3 (test code <0.01 See_Comment [Auto mated = 0910191888) message] The s ystem which generated this result transmitted reference range : 10*3/?L. The reference range was not used to interpret this result as normal/abnormal . GRAN MAT (NEUT) % 77.2 % (test code = 770-8) IMM GRAN % (test code 0.50 % = 3116256660) LYMPH % (test code = 16.4 % 736-9) MONO % (test code = 4.8 % 5905-5) EOS % (test code = 0.6 % 713-8) BASO % (test code = 0.5 % 706-2) GRAN MAT x10^3(ANC) 8.12 10*3/uL 1.99-6.95 H (test code = 1556648781) IMM GRAN x10^3 (test 0.05 10*3/uL 0-0.06 code = 6505296843) LYMPH x10^3 (test code 1.73 10*3/uL 1.09-3.23 = 731-0) MONO x10^3 (test code 0.51 10*3/uL 0.36-1.02 = 742-7) EOS x10^3 (test code = 0.06 10*3/uL 0.06-0.53 711-2) BASO x10^3 (test code 0.05 10*3/uL 0.01-0.09 = 704-7) Lab Interpretation Abnormal (test code = 08429-1) [facility]"
[2023-03-23] MEDS ORDERED: HYDROCODONE/APAP 5/325 MG TAB ONE (06:38)
[2023-03-23] MEDS ORDERED: ONDANSETRON 4 MG (ODT) TAB ONE (06:38)
--- NOTE | 2023-03-23 06:49 | ER ---
Nurse's Notes [facility] Name: Corey Govea Age: 62 yrs Sex: Male : 1960 Arrival Date: 03/23/2023 Time: 06:03 Bed 7 Private MD: Diagnosis: Bitten by dog;Skin avulsions Presentation: 03/23 06:17 Chief complaint: Patient states: pt was trying to break up a dog fight and got bit in as6 the left forearm. Coronavirus screen: At this time, the client does not indicate any symptoms associated with coronavirus-19. Ebola Screen: No symptoms or risks identified at this time. Initial Sepsis Screen: Does the patient meet any 2 criteria? No. Patient's initial sepsis screen is negative. Does the patient have a suspected source of infection? No. Patient's initial sepsis screen is negative. Risk Assessment: Do you want to hurt yourself or someone else? Patient reports no desire to harm self or others. Onset of symptoms was March 23, 2023. 06:17 Method Of Arrival: Ambulatory as6 06:17 Acuity: NIKOLAI 3 as6 Triage Assessment: 06:38 Bite description: bite sustained to left arm by a dog, animal information: rv vaccination(s) is current. Historical: - Allergies: 06:19 Codeine; as6 - PMHx: 06:19 coronary atherosclerosis; High Cholesterol; NIDDM; as6 - PSHx: 06:19 cardiac stents; as6 - Immunization history:: Client reports receiving the 1st dose of the Covid vaccine, pfizer Last tetanus immunization: up to date < 5 years ago. - Social history:: Smoking status: Patient denies any tobacco usage or history of. - Family history:: not pertinent. - Hospitalizations: : No recent hospitalization is reported. Screenin:37 [facility] ED Fall Risk Assessment (Adult) History of falling in the last 3 months, rv including since admission No falls in past 3 months (0 pts) Confusion or Disorientation No (0 pts) Intoxicated or Sedated No (0 pts) Impaired Gait No (0 pts) Mobility Assist Device Used No (0 pt) Altered Elimination No (0 pt) Score/Fall Risk Level 0 - 2 = Low Risk Oriented to surroundings, Maintained a safe environment, Educated pt \\T\\ family on fall prevention, incl call for assistance when getting out of bed, Assessed \\T\\ reinforced patient's understanding of fall precautions, Provided non-skid footwear, Hourly rounding (assess needs \\T\\ fall precautionary measures) done, Used ambulatory aids as needed (educated on \\T\\ assisted with), Used gait belt as appropriate. Abuse screen: Denies threats or abuse. Denies injuries from another. Nutritional screening: No deficits noted. Tuberculosis screening: No symptoms or risk factors identified. Assessment: 06:33 General: Appears in no apparent distress. Behavior is calm, cooperative. Pain: rv Complains of pain in left arm. Neuro: Level of Consciousness is awake, alert, obeys commands, Oriented to person, place, time, situation. Cardiovascular: Capillary refill < 3 seconds Patient's skin is warm and dry. Respiratory: Airway is patent Respiratory effort is even, unlabored. GI: No signs and/or symptoms were reported involving the gastrointestinal system. : No signs and/or symptoms were reported regarding the genitourinary system. Derm: Skin multiple lacerations to the left fore arm Skin is normal. Musculoskeletal: Swelling present in palmar aspect of left forearm. Vital Signs: 06:17 Weight 79.38 kg (R); Height 5 ft. 7 in. (R); Pain 9/10; as6 06:17 Body Mass Index 27.41 (79.38 kg, 170.18 cm) as6 06:17 Pain Scale: Adult as6 ED Course: 06:06 Patient arrived in ED. ag3 06:07 Jimmy Garcia MD is Attending Physician. rn 06:14 Ernie De La Paz RN is Primary Nurse. rv 06:18 Triage completed. as6 06:20 Arm band placed on. as6 06:24 Called [employer] spoke with Ni to report dog bite. She requested we call back if Pt wm leaves before animal control comes. Informed her that they normal do not investigate if it's twist tester's dog, she said "ok, they will probably just call him first". 06:36 XRAY Forearm LEFT In Process Unspecified. EDMS 06:37 Patient has correct armband on for positive identification. Provided Education on: rv rabbies. 06:37 No provider procedures requiring assistance completed. rv 06:40 Wound care: to puncture located on palmar aspect of left forearm was cleaned with vc1 dressed with 4X4s, cling, ice pack applied. Patient tolerated well. 06:56 Inserted saline lock: 22 gauge in right hand, using aseptic technique. rv 07:06 IV discontinued, intact, bleeding controlled, No redness/swelling at site. Pressure rv dressing applied. Administered Medications: 06:40 Drug: HYDROcodone-acetaminophen PO 5 mg-325 mg 1 tabs Route: PO; rv 07:06 Follow up: Response: No adverse reaction rv 06:40 Drug: Ondansetron PO 4 mg Route: PO; rv 07:06 Follow up: Response: No adverse reaction rv 06:57 Drug: ceFAZolin IVPB 1 grams Route: IVPB; Site: right hand; rv 07:05 Follow up: Response: Medication administered at discharge.; IV Status: Completed rv infusion Medication: 06:37 Vaccine Information Statement (VIS) provided today. Questions and/or concerns rv addressed. VIS edition date: March 23, 2023. Outcome: 06:49 Discharge ordered by . rn 07:06 Discharged to home ambulatory. rv 07:06 Condition: good 07:06 Discharge instructions given to patient, Instructed on discharge instructions, follow up and referral plans. medication usage, wound care, Demonstrated understanding of instructions, follow-up care, medications, wound care, Prescriptions given X 3. 07:06 Patient left the ED. rv Signatures: Dispatcher [employer] EDMS Jimmy Garcia MD MD rn Vicente, Ronaldo RN RN Gale Corea ag3 Simona Mario Ashby, RN RN as6 Carmina Laboy RN RN vc1 Corrections: (The following items were deleted from the chart) 06:56 06:37 Patient did not have IV access during this emergency room visit. rv rv
--- NOTE | 2023-03-23 06:49 | EDPHYS ---
Physician Documentation [facility] Name: Corey Govea Age: 62 yrs Sex: Male : 1960 Arrival Date: 03/23/2023 Time: 06:03 Bed 7 Private MD: ED Physician Jimmy Garcia HPI: 03/23 06:15 This 62 yrs old Male presents to ER via Unassigned with complaints of Dog Bite. rn 06:15 The patient was bitten on the left arm. Onset: The symptoms/episode began/occurred just rn prior to arrival. Animal information: Animal's vaccinations are up to date. Secondary to the bite the patient reports multiple puncture wounds. Associated signs and symptoms: Pertinent positives: swelling at site, tenderness, Pertinent negatives: bony tenderness, fever. Associated signs and symptoms: Pertinent positives: pain at site, Pertinent negatives: motor deficit, numbness distal to wound, suspected foreign body. Severity of symptoms: At their worst the symptoms were moderate, in the emergency department the symptoms have improved. The patient has experienced a previous episode. Pt reports tried to break up his dogs, bit him on left forearm, takes blood thinners, bleeding has improved, tetanus up to date. . Historical: - Allergies: 06:19 Codeine; as6 - PMHx: 06:19 coronary atherosclerosis; High Cholesterol; NIDDM; as6 - PSHx: 06:19 cardiac stents; as6 - Immunization history:: Client reports receiving the 1st dose of the Covid vaccine, pfizer Last tetanus immunization: up to date < 5 years ago. - Social history:: Smoking status: Patient denies any tobacco usage or history of. - Family history:: not pertinent. - Hospitalizations: : No recent hospitalization is reported. ROS: 06:15 Constitutional: Negative for fever, chills, and weight loss, MS/Extremity: + puncture rn and skin tears to left forearm Neuro: Negative for weakness and numbness Exam: 06:15 Constitutional: This is a well developed, well nourished patient who is awake, alert, rn and in no acute distress. Ambulatory, holding hand towel over wound. MS/ Extremity: Pulses equal, no cyanosis. Neurovascular intact. + multiple sites of puncture and skin tears/avulsions involving dorsum and lateral left forearm, minimal bleeding, no arterial bleeding, no bone exposed. 06:42 Musculoskeletal/extremity: ROM: intact in all extremities, full active range of motion, rn full passive range of motion, Pulses: are normal with no appreciated deficits, Perfusion: the patient is normally perfused throughout, pink, warm, noted to have brisk capillary refill, Perfusion: the extremity is normally perfused throughout, pink, warm, with brisk capillary refill, Sensation intact. Tendon exam: specific tendon testing normal through active and passive range of motion Vital Signs: 06:17 Weight 79.38 kg (R); Height 5 ft. 7 in. (R); Pain 9/10; as6 06:17 Body Mass Index 27.41 (79.38 kg, 170.18 cm) as6 06:17 Pain Scale: Adult as6 MDM: 06:07 Patient medically screened. rn 06:25 Differential diagnosis: superficial laceration, skin avulsion, skin tears, puncture rn wounds. Data reviewed: vital signs, nurses notes. Counseling: I had a detailed discussion with the patient and/or guardian regarding the historical points, exam findings, and any diagnostic results supporting the discharge/admit diagnosis. Response to treatment: the patient's symptoms have mildly improved after treatment. ED course: After cleansing wounds, skin and tissue badly macerated and mangled, is missing skin over several areas, not really able to approximate well. Bleeding controlled. Given high risk of infection and not enough tissue to close wounds, had long discussion with patient regarding sutures or not, joint decision made to approximate as well as we can with steristrips and not suture wounds. Will dc home as long as xray does not reveal fracture or foreign body. . 03/23 06:15 Order name: XRAY Forearm LEFT rn 03/23 06:15 Order name: Wound Care; Complete Time: 06:24 rn 03/23 06:15 Order name: Wound dressing; Complete Time: 06:24 rn 03/23 06:50 Order name: IV Start; Complete Time: 06:54 rn Administered Medications: 06:40 Drug: HYDROcodone-acetaminophen PO 5 mg-325 mg 1 tabs Route: PO; rv 07:06 Follow up: Response: No adverse reaction rv 06:40 Drug: Ondansetron PO 4 mg Route: PO; rv 07:06 Follow up: Response: No adverse reaction rv 06:57 Drug: ceFAZolin IVPB 1 grams Route: IVPB; Site: right hand; rv 07:05 Follow up: Response: Medication administered at discharge.; IV Status: Completed rv infusion Disposition Summary: 03/23/23 06:49 Discharge Ordered Location: Home rn Problem: new rn Symptoms: have improved rn Condition: Stable rn Diagnosis - Bitten by dog rn - Skin avulsions rn Followup: rn - With: Private Physician - When: 2 - 3 days - Reason: Recheck today's complaints, Re-evaluation by your physician Discharge Instructions: - Discharge Summary Sheet rn - Animal Bite, Adult rn Forms: - Medication Reconciliation Form rn - Thank You Letter rn - Antibiotic varnish melter helper - Prescription Opioid Use rn - Patient Portal Instructions rn - Leadership Thank You Letter rn Prescriptions: - acetaminophen-codeine 300-30 mg Oral tablet - take 1 tablet by ORAL route every 6-8 hours As needed as needed for pain; 12 rn tablet; Refills: 0, Product Selection Permitted - ondansetron 4 mg Oral Tablet,disintegrating - take 1 tablet by ORAL route every 8 hours As needed; 10 tablet; Refills: 0, rn Product Selection Permitted - Augmentin 875-125 mg Oral Tablet - take 1 tablet by ORAL route every 12 hours for 10 days; 20 tablet; Refills: 0, rn Product Selection Permitted Signatures: Dispatcher [employer] EDMS Jimmy Garcia MD MD rn Vicente, Ronaldo, RN RN rv Slawson, Ashby, RN RN as6 Corrections: (The following items were deleted from the chart) 06:44 06:25 ED course: After cleansing wounds, skin and tissue badly macerated and mangled, rn is missing skin over several areas, not really able to approximate well. Bleeding controlled. Had long discussion with patient regarding sutures or not, joint decision made to approximate as well as we can with steristrips. Will dc home as long as xray does not reveal fracture or foreign body. . rn
[2023-03-23] MEDS ORDERED: CEFAZOLIN SODIUM 1 GM/VIAL ONE (07:05)
[2023-03-23] MEDS ORDERED: WATER FOR INJ,STERILE 10 ML ONE (07:06)
--- NOTE | 2023-03-23 08:22 | RAD REPORT ---
EXAM DESCRIPTION: RAD - Forearm Left - 03/23/2023 6:34 am CLINICAL HISTORY: ANIMAL BITE COMPARISON: No comparisons FINDINGS: No fracture, dislocation or radiopaque foreign body. Soft tissue superficial gas is presen t along the dorsum of the forearm likely attributable to animal bite.
== END 2023-03-23 07:06 | disposition home or self-care (01) ==
LOC: ER 06:03
DX: S51.802A Unspecified open wound of left forearm, initial encounter (principal); W54.0XXA Bitten by dog, initial encounter; Z88.5 Allergy status to narcotic agent; Z95.818 Presence of other cardiac implants and grafts
CPT/HCPCS: 73090; 96374; 99284; Q0162; J0690